=== PATIENT | female | born 1995 | race Asian ===

== ENCOUNTER 2020-07-11 14:45 | Emergency (ER) | payer OTHER ==
--- OUTSIDE RECORDS SUMMARY | 2020-07-11 14:48 | XMS REPORT | Continuity of Care Document ---
:1995 Author Organization [facility] t Address [address] [place] [address] Dr. Gomez [address] [place] [id number] Care Team Providers Name Role Phone Blayne MARTÍNEZ Attending Clinician Problems This patient has no known problems. Allergies, Adverse Reactions, Alerts This patient has no known allergies or adverse reactions. Medications This patient has no known medications. Procedures This patient has no known procedures. Encounters Start End Encounter Admission Attending Care Care Encounter Source Date/Time Date/Time Type Type Clinicians Facility Department ID 2020-04-19 2020-04-19 Emergency GHISLAINE Cisneros [id number] 11:49:00 14:31:00 Michaela Tucker [id number] [place] [id number] [place] [id number] Results This patient has no known results.
[2020-07-11 15:17] LABS: Urine Blood 2+ (Negative); Urine Glucose Negative (Negative); Urine Protein Trace (Negative); Urine Specific Gravity >=1.030 (1.005-1.030)
[2020-07-11 15:37] LABS: Urine Specific Gravity/Preg >1.030 (1.005-1.030)
[2020-07-11 16:08] LABS: Absolute Lymphocytes (CBC) 1.4 K/uL (0.7-4.9); Basophils % 0.2 % (0-1.3); Hematocrit 32.3 % (36.0-45.0); Lymphocytes % 21.6 % (15.3-44.8); MPV 7.2 fL (7.6-11.3); RBC Red Blood Cell Count 3.61 M/uL (3.86-4.86)
[2020-07-11 16:28] LABS: BUN Blood Urea Nitrogen 8 mg/dL (7-18); Bicarbonate 25 mmol/L (21-32); Glucose Level 90 mg/dL (74-106); HCG, Quantitative 145916 mIU/mL (1-3); Potassium 3.6 mmol/L (3.5-5.1); Sodium Level 140 mmol/L (136-145)
[2020-07-11] MEDS ORDERED: NA CHLORIDE 0.9% 1,000 ML ONE ×2 (17:09→17:46)
--- NOTE | 2020-07-11 17:25 | ER ---
Nurse's Notes [facility] Name: Mary Ann Wood Age: 24 yrs Sex: Female : 1995 Arrival Date: 07/11/2020 Time: 14:48 Bed 16 Private MD: Diagnosis: Volume depletion;11 weeks gestation of Presentation: 07/11 15:10 Chief complaint: Patient states: Pt states she is with triplets and has had ae4 decreased appetite and vomiting x 2 since the previous day. Pt describes vomit as "yellow" and with "mucous". Coronavirus screen: Client denies travel out of the [place] in the last 14 days. At this time, the client does not indicate any symptoms associated with coronavirus-19. Ebola Screen: Patient denies exposure to infectious person. Patient denies travel to an Ebola-affected area in the 21 days before illness onset. No symptoms or risks identified at this time. Initial Sepsis Screen: Does the patient meet any 2 criteria? No. Patient's initial sepsis screen is negative. Risk Assessment: Do you want to hurt yourself or someone else? Patient reports no desire to harm self or others. Onset of symptoms was July 08, 2020. 15:10 Method Of Arrival: Ambulatory ae4 15:10 Acuity: AILYN 3 ae4 15:26 Initial Sepsis Screen: Does the patient have a suspected source of infection? No. tr6 Patient's initial sepsis screen is negative. Triage Assessment: 15:13 General: Appears in no apparent distress. comfortable, Behavior is calm, cooperative. ae4 Pain: Complains of pain in head and back of head. Neuro: Level of Consciousness is awake, alert, obeys commands, Oriented to person, place, time, situation, Appropriate for age. Respiratory: Airway is patent Respiratory effort is even, unlabored. GI: Reports vomiting, Twice since the previous day. 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 Last tetanus immunization: < 10 years ago Flu vaccine is not up to date. - Social history:: Smoking status: Patient denies any tobacco usage or history of. Screenin:11 Abuse screen: Denies threats or abuse. Denies injuries from another. Nutritional tr6 screening: No deficits noted. Tuberculosis screening: No symptoms or risk factors identified. Fall Risk None identified. Assessment: 18:56 General: Appears in no apparent distress. Behavior is calm, cooperative, appropriate tr6 for age. Pain: Complains of pain in c/o headache. Neuro: No deficits noted. Cardiovascular: No deficits noted. Respiratory: No deficits noted. GI: pt with triplets. : No deficits noted. EENT: No deficits noted. Derm: No deficits noted. Musculoskeletal: No deficits noted. Vital Signs: 14:54 BP 98 / 64; Pulse 94; Resp 18; Temp 97.6; Pulse Ox 100% ; Weight 60.33 kg; Height 4 ft. ae4 11 in. (149.86 cm); Pain 6/10; 15:25 BP 100 / 64 Supine; tr6 15:25 BP 112 / 72 Sitting; tr6 15:25 BP 94 / 71 Standing; tr6 18:28 BP 99 / 65; Pulse 92; Resp 18; Pulse Ox 100% on R/A; tr6 14:54 Body Mass Index 26.86 (60.33 kg, 149.86 cm) ae4 ED Course: 14:48 Patient arrived in ED. ds1 14:51 [facility]ul [facility] kb 14:51 Chavo Beckford MD is Attending Physician. kb 15:09 Ladan Lin RN is Primary Nurse. tr6 15:11 Patient has correct armband on for positive identification. Bed in low position. Call tr6 light in reach. Side rails up X 1. 15:11 No provider procedures requiring assistance completed. tr6 15:12 Triage completed. ae4 16:28 OB Multi Gestation < 14 Wks In Process Unspecified. EDMS 18:57 IV discontinued, intact, bleeding controlled, No redness/swelling at site. Pressure tr6 dressing applied. Administered Medications: 16:54 Drug: NS 0.9% 1000 ml Route: IV; Rate: 1000 ml; Site: left antecubital; vg1 18:42 Follow up: IV Status: Completed infusion; IV Intake: 1000ml vg1 Intake: 18:42 IV: 1000ml; Total: 1000ml. vg1 Outcome: 17:24 Discharge ordered by MD. ramos 18:57 Discharged to home ambulatory. tr6 18:57 Condition: stable 18:57 Discharge instructions given to patient, Instructed on discharge instructions, follow up and referral plans. safety practices, Demonstrated understanding of instructions, follow-up care. 18:57 Patient left the ED. tr6 Signatures: Dispatcher [employer] EDRI Azul Alejandre, HEAD LINEMAN-C HEAD LINEMAN-Maria De Jesus Meeks ds1 Ben Dao, RN RN ae4 Caty Harrison RN RN vg1 Ladan Lin, RN RN tr6
--- NOTE | 2020-07-11 17:25 | EDPHYS ---
Physician Documentation [facility] Name: Mary Ann Wood Age: 24 yrs Sex: Female : 1995 Arrival Date: 07/11/2020 Time: 14:48 Bed 16 Private MD: ED Physician Chavo Beckford HPI: 07/11 20:38 This 24 yrs old Female presents to ER via Ambulatory with complaints of Nausea, kb Dizziness, 10 Wks Preg W/Multiples. 20:38 The patient presents to the emergency department with abdominal pain, of the suprapubic kb area, that started 2 day(s) ago, nausea and vomiting, that started today, 1 times since the onset of symptoms. The estimated gestational age is 11 weeks. course: care: at a clinic. Previous pregnancies: the patient has never been . Associated signs and symptoms: Pertinent positives: abdominal pain, nausea, vomiting, Pertinent negatives: dysuria, fever, vaginal bleeding, vaginal discharge. The patient has not experienced similar symptoms in the past. The patient has not recently seen a physician. Pt reports decreased appetite for 2 days, had some dizziness yesterday, today vomited once. States she has had low abd pain as well and is 11 weeks with triplets. 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 Last tetanus immunization: < 10 years ago Flu vaccine is not up to date. - Social history:: Smoking status: Patient denies any tobacco usage or history of. ROS: 20:37 Constitutional: Negative for fever, chills, and weight loss. kb 20:37 Constitutional: Positive for decreased appetites. 20:37 Abdomen/GI: Positive for abdominal pain, nausea and vomiting. 20:37 Neuro: Positive for dizziness. 20:37 All other systems are negative. Exam: 20:38 Constitutional: This is a well developed, well nourished patient who is awake, alert, kb and in no acute distress. Head/Face: Normocephalic, atraumatic. Eyes: Pupils equal round and reactive to light, extra-ocular motions intact. Lids and lashes normal. Conjunctiva and sclera are non-icteric and not injected. Cornea within normal limits. Periorbital areas with no swelling, redness, or edema. ENT: Moist Mucous membranes Cardiovascular: Regular rate and rhythm with a normal S1 and S2. No gallops, murmurs, or rubs. No pulse deficits. Respiratory: Respirations even and unlabored. No increased work of breathing, no retractions or nasal flaring. Abdomen/GI: Soft, non-tender. No distention Skin: Warm, dry with normal turgor. Normal color. MS/ Extremity: Pulses equal, no cyanosis. Neurovascular intact. Full, normal range of motion. Neuro: Awake and alert, GCS 15, oriented to person, place, time, and situation. Moves all extremities. Normal gait. Psych: Awake, alert, with orientation to person, place and time. Behavior, mood, and affect are within normal limits. Vital Signs: 14:54 BP 98 / 64; Pulse 94; Resp 18; Temp 97.6; Pulse Ox 100% ; Weight 60.33 kg; Height 4 ft. ae4 11 in. (149.86 cm); Pain 6/10; 15:25 BP 100 / 64 Supine; tr6 15:25 BP 112 / 72 Sitting; tr6 15:25 BP 94 / 71 Standing; tr6 18:28 BP 99 / 65; Pulse 92; Resp 18; Pulse Ox 100% on R/A; tr6 14:54 Body Mass Index 26.86 (60.33 kg, 149.86 cm) ae4 MDM: 14:58 Patient medically screened. kb 20:36 Data reviewed: vital signs, nurses notes. Data interpreted: Pulse oximetry: on room air kb is 100 %. Interpretation: normal. Counseling: I had a detailed discussion with the patient and/or guardian regarding: the historical points, exam findings, and any diagnostic results supporting the discharge/admit diagnosis, lab results, radiology results, the need for outpatient follow up, an OB/Gyne specialist, to return to the emergency department if symptoms worsen or persist or if there are any questions or concerns that arise at home. 07/11 14:57 Order name: Quantitative Hcg; Complete Time: 16:41 kb 07/11 14:57 Order name: Abo/rh Typing; Complete Time: 18:10 kb 07/11 14:57 Order name: Basic Metabolic Panel; Complete Time: 16:41 kb 07/11 14:57 Order name: CBC with Diff; Complete Time: 16:41 kb 07/11 15:17 Order name: Urine Dipstick-Ancillary; Complete Time: 15:29 EDMS 07/11 15:20 Order name: Urine --Ancillary (enter results) em1 07/11 14:57 Order name: Urine Test (obtain specimen); Complete Time: 15:11 kb 07/11 14:57 Order name: IV Saline Lock; Complete Time: 15:11 kb 07/11 14:57 Order name: Labs collected and sent; Complete Time: 15:11 kb 07/11 14:57 Order name: NPO; Complete Time: 15:11 kb 07/11 15:21 Order name: Urine --Ancillary; Complete Time: 15:44 EDMS 07/11 16:28 Order name: OB Multi Gestation < 14 Wks; Complete Time: 17:35 EDMS 07/11 14:57 Order name: Orthostatics; Complete Time: 15:11 kb Administered Medications: 16:54 Drug: NS 0.9% 1000 ml Route: IV; Rate: 1000 ml; Site: left antecubital; vg1 18:42 Follow up: IV Status: Completed infusion; IV Intake: 1000ml vg1 Disposition: 07/11/20 17:24 Discharged to Home. Impression: Volume depletion, 11 weeks gestation of . - Condition is Stable. - Discharge Instructions: First Trimester of , Otkr-id-Tpkd, Dehydration, Adult, Bann-ze-Spzo. - Medication Reconciliation Form, Thank You Letter, Antibiotic Education, Prescription Opioid Use form. - Follow up: Emergency Department; When: As needed; Reason: Worsening of condition. Follow up: Private Physician; When: 2 - 3 days; Reason: Recheck today's complaints, Continuance of care, Re-evaluation by your physician. Addendum: 07/15/2020 06:59 Co-signature as Attending Physician, Chavo Beckford MD. m a2 Signatures: Dispatcher [employer] EDAzul Chen, TANYA-Marine MARTÍNEZ-Chavo Fierro MD MD ma2 Ben Dao RN RN ae4 Caty Harrison, RN RN vg1 Ladan Lin, RN RN tr6 Corrections: (The following items were deleted from the chart) 07/11 16:28 14:58 Transvaginal Ob+US.RAD.BRZ ordered. EDMS EDMS 18:57 17:24 07/11/2020 17:24 Discharged to Home. Impression: Volume depletion; 11 weeks tr6 gestation of . Condition is Stable. Forms are Medication Reconciliation Form, Thank You Letter, Antibiotic Education, Prescription Opioid Use. Follow up: Emergency Department; When: As needed; Reason: Worsening of condition. Follow up: Private Physician; When: 2 - 3 days; Reason: Recheck today's complaints, Continuance of care, Re-evaluation by your physician. kb
--- NOTE | 2020-07-11 17:29 | RAD REPORT ---
EXAM DESCRIPTION: US - OB Multi Gestation < 14 Wks - 07/11/2020 4:28 pm CLINICAL HISTORY: with abdominal pain COMPARISON: None FINDINGS: The uterus measures 10 x 8 x 10 centimeters. Three gestational sacs are visualized. Each has a pole. Baby A crown-rump length 4 centimeters. Cardiac activity 176 beats per minute. Baby B crown-rump length 4.5 centimeters. Cardiac activity 178 beats per minute. Baby C crown-rump length 4.3 centimeters. Cardiac activity 160 beats per minute. The right and left at adnexa unremarkable. Left ovary is normal in size and echotexture. Right ovary was not seen secondary to bowel gas. IMPRESSION: Triplet . Estimated gestational A 10 weeks 5 days KAYLYN 02/01/2021 Estimated gestational age B 11 weeks 0 days KAYLYN 01/30/2021 Estimated gestational C 11 weeks 0 days KAYLYN 01/30/2021 Three separate gestational sacs visualized. If a survey is desired it should be performed in approximately 7 weeks
[2020-07-11 19:04] VITALS: TEMP 97.6; O2SAT 100
[2020-07-11 19:07] VITALS: BP 99/65
== END 2020-07-11 18:57 | disposition home or self-care (01) ==
LOC: ER 14:45
DX: O30.1 Triplet pregnancy (principal); O99.281 Endocrine, nutritional and metabolic diseases complicating pregnancy, first trimester; E86.9 Volume depletion, unspecified; Z3A.11 11 weeks gestation of pregnancy
CPT/HCPCS: 85025; 80048; 36415; 86900; 81025; 86901; 84702; 81003; 76802; J7030 ×2; 96360; 96361; 99283

== ENCOUNTER 2020-08-04 21:01 | Emergency (ER) | payer OTHER ==
--- OUTSIDE RECORDS SUMMARY | 2020-08-04 21:04 | XMS REPORT | Continuity of Care Document ---
:1995 Author Organization [facility] t Address [address] [place] [address] Dr. Gomez [address] [place] [id number] Care Team Providers Name Role Phone Blayne [...] 2020-04-19 2020-04-19 Emergency GHISLAINE Cisneros [id number] 11:49:00 14:31:00 Michaela Tucker [id number] [place] [id number] [place] [phone] [id number] Results This patient has no known results.
[2020-08-04 22:26] LABS: Urine Blood Trace-intact (Negative); Urine Glucose Negative (Negative); Urine Protein 1+ (Negative); Urine Specific Gravity >=1.030 (1.005-1.030)
[2020-08-04 22:34] LABS: Absolute Lymphocytes (CBC) 1.9 K/uL (0.7-4.9); Basophils % 0.2 % (0-1.3); Hematocrit 27.7 % (36.0-45.0); Lymphocytes % 25.1 % (15.3-44.8); MPV 6.8 fL (7.6-11.3); RBC Red Blood Cell Count 3.09 M/uL (3.86-4.86)
[2020-08-04 23:08] LABS: BUN Blood Urea Nitrogen 7 mg/dL (7-18); Bicarbonate 22 mmol/L (21-32); Glucose Level 73 mg/dL (74-106); HCG, Quantitative 112412 mIU/mL (1-3); Potassium 3.7 mmol/L (3.5-5.1); Sodium Level 138 mmol/L (136-145)
[2020-08-04 23:54] LABS: Urine Bacteria >50 /HPF (<20); Urine RBC <5 /HPF (NONE SEEN)
[2020-08-05] MEDS ORDERED: NA CHLORIDE 0.9% 1,000 ML ONE (00:20)
[2020-08-05] MEDS ORDERED: NITROFURAN MACRO 100 MG CAP PO ONE (00:20)
--- NOTE | 2020-08-05 00:41 | ER ---
Nurse's Notes [facility] Name: Mary Ann Wood Age: 24 yrs Sex: Female : 1995 Arrival Date: 08/04/2020 Time: 21:04 Bed 24 Private MD: Diagnosis: Threatened ;Urinary tract infection, site not specified Presentation: 08/04 21:10 Chief complaint: Patient states: 14 wks to triplets. 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 Also reports vaginal spotting. Coronavirus screen: Client denies travel out of the [place] in the last 14 days. At this time, the client does not indicate any symptoms associated with coronavirus-19. Ebola Screen: Patient negative for fever greater than or equal to 101.5 degrees Fahrenheit, and additional compatible Ebola Virus Disease symptoms Patient denies exposure to infectious person. Patient denies travel to an Ebola-affected area in the 21 days before illness onset. No symptoms or risks identified at this time. Initial Sepsis Screen: Does the patient meet any 2 criteria? No. Patient's initial sepsis screen is negative. Does the patient have a suspected source of infection? No. Patient's initial sepsis screen is negative. Risk Assessment: Do you want to hurt yourself or someone else? Patient reports no desire to harm self or others. Onset of symptoms was August 04, 2020. 21:10 Method Of Arrival: Ambulatory ca1 21:10 Acuity: AILYN 3 ca1 Triage Assessment: 21:34 Injury Description:. 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 Flu vaccine is not up to date. - Social history:: Smoking status: Patient denies any tobacco usage or history of. - Family history:: not pertinent. - Hospitalizations: : No recent hospitalization is reported. Screenin:34 Abuse screen: Denies threats or abuse. Denies injuries from another. Nutritional kg screening: No deficits noted. Tuberculosis screening: No symptoms or risk factors identified. Fall Risk None identified. No fall in past 12 months (0 pts). No secondary diagnosis (0 pts). No IV (0 pts). Ambulatory Aid- None/Bed Rest/Nurse Assist (0 pts). Gait- Normal/Bed Rest/Wheelchair (0 pts) Mental Status- Oriented to own ability (0 pts). Total Mathis Fall Scale indicates No Risk (0-24 pts). Assessment: 21:31 General: Appears in no apparent distress. Behavior is cooperative, appropriate for age, kg anxious, quiet. Pain: Complains of pain in suprapubic area, right lower quadrant and left lower quadrant Pain currently is 8 out of 10 on a pain scale. at worst was 8 out of 10 on a pain scale. level that patient reports is acceptable is 2 out of 10 on a pain scale. Quality of pain is described as crampy, sharp, Pain began 2 hours ago. Is episodic. Neuro: No deficits noted. Cardiovascular: No deficits noted. Heart tones S1 S2 Capillary refill < 3 seconds Pulses are 4+ in right radial artery and left radial artery. Respiratory: No deficits noted. Airway is patent Breath sounds are clear bilaterally. GI: No deficits noted. GI: Reports lower abdominal pain, cramping, nausea. : No deficits noted. : Reports vaginal bleeding that is spotty, since two hours ago, unsure if its vaginal or urine. EENT: No deficits noted. Derm: No deficits noted. Musculoskeletal: No deficits noted. 08/05 00:34 Reassessment: Patient appears in no apparent distress at this time. Patient and/or em family updated on plan of care and expected duration. Pain level reassessed. Patient is alert, oriented x 3, equal unlabored respirations, skin warm/dry/pink. Vital Signs: 08/04 21:10 BP 108 / 67; Pulse 98; Resp 18 S; Temp 98.1(TE); Pulse Ox 98% on R/A; Weight 58.97 kg ca1 (R); Height 4 ft. 11 in. (149.86 cm) (R); Pain 8/10; 21:35 BP 106 / 76; Pulse 86; Resp 18; Pulse Ox 100% on R/A; kg 22:30 BP 108 / 75; Pulse 93; Pulse Ox 100% on R/A; kg 23:00 BP 102 / 77; Pulse 87; Resp 18; Pulse Ox 100% ; kg 23:30 BP 98 / 63; Pulse 90; Resp 20; Pulse Ox 100% ; kg 08/05 00:00 BP 98 / 73; Pulse 89; Resp 29; Pulse Ox 100% on R/A; kg 08/04 21:10 Body Mass Index 26.26 (58.97 kg, 149.86 cm) ca1 ED Course: 08/04 21:04 Patient arrived in ED. bp1 21:12 Triage completed. ca1 21:12 Arm band placed on right wrist. ca1 21:19 Netta Toro, RN is Primary Nurse. kg 21:23 Rory Cantor MD is Attending Physician. rn 21:35 Patient has correct armband on for positive identification. Placed in gown. Bed in low kg position. Call light in reach. Side rails up X2. 22:08 US OB Limited In Process Unspecified. EDMS 06 00:54 No provider procedures requiring assistance completed. IV discontinued, intact, em bleeding controlled, No redness/swelling at site. Pressure dressing applied. Administered Medications: 00:03 Drug: NS 0.9% 1000 ml Route: IV; Rate: 1000 ml; Site: right antecubital; kg 00:54 Follow up: IV Status: Completed infusion; IV Intake: 1000ml em 00:03 Drug: Macrobid (nitrofurantoin) 100 mg Route: PO; kg 00:53 Follow up: Response: No adverse reaction em Intake: 00:54 IV: 1000ml; Total: 1000ml. em Outcome: 00:40 Discharge ordered by . rn 00:54 Discharged to home ambulatory. em 00:54 Condition: stable 00:54 Discharge instructions given to patient, Instructed on discharge instructions, follow up and referral plans. medication usage, Demonstrated understanding of instructions, follow-up care, medications, Prescriptions given X 1. 00:55 Patient left the ED. em Signatures: Dispatcher [employer] Andrzej Leo RN RN Rory Cantor MD MD rn Acob, Cheryl, RN RN ca1 Marlyn Hook bp1 Netta Toro RN RN kg
--- NOTE | 2020-08-05 00:41 | EDPHYS ---
Physician Documentation [facility] Name: Mary Ann Wood Age: 24 yrs Sex: Female : 1995 Arrival Date: 08/04/2020 Time: 21:04 Bed 24 Private MD: ED Physician Rory Cantor HPI: 08/04 23:59 This 24 yrs old Female presents to ER via Ambulatory with complaints of Vaginal rn Bleeding, +14 Weeks . 23:59 The patient presents to the emergency department with vaginal bleeding, that is light, rn described as spotting. The estimated gestational age is 14 weeks. Previous pregnancies: the patient has never been . The patient has not experienced similar symptoms in the past. The patient has not recently seen a physician. G1 at approx 13-14 weeks presents with abd cramping and vaginal bleeding/spotting. No fever. No trauma. No urinary symptoms. Reports known triplets. Has had u/s already. Doesn't know blood type.. 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 Flu vaccine is not up to date. - Social history:: Smoking status: Patient denies any tobacco usage or history of. - Family history:: not pertinent. - Hospitalizations: : No recent hospitalization is reported. ROS: 23:59 Constitutional: Negative for fever, chills, and weight loss, Eyes: Negative for injury, rn pain, redness, and discharge, Neck: Negative for injury, pain, and swelling, Cardiovascular: Negative for chest pain, palpitations, and edema, Respiratory: Negative for shortness of breath, cough, wheezing, and pleuritic chest pain, Abdomen/GI: Negative for nausea, vomiting, diarrhea, and constipation, Back: Negative for injury and pain, : Negative for injury, discharge, and swelling, MS/Extremity: Negative for injury and deformity, Skin: Negative for injury, rash, and discoloration, Neuro: Negative for headache, weakness, numbness, tingling, and seizure. Exam: 23:59 Constitutional: This is a well developed, well nourished patient who is awake, alert, rn and in no acute distress. Head/Face: Normocephalic, atraumatic. Eyes: Periorbital areas with no swelling, redness, or edema. ENT: dry MM Cardiovascular: Regular rate and rhythm. No pulse deficits. Respiratory: No increased work of breathing, no retractions or nasal flaring. Abdomen/GI: soft, + gravid uterus, mild tenderness right lower abdomen Skin: Warm, dry MS/ Extremity: Pulses equal, no cyanosis. Neuro: Awake and alert, GCS 15 Vital Signs: 21:10 BP 108 / 67; Pulse 98; Resp 18 S; Temp 98.1(TE); Pulse Ox 98% on R/A; Weight 58.97 kg ca1 (R); Height 4 ft. 11 in. (149.86 cm) (R); Pain 8/10; 21:35 BP 106 / 76; Pulse 86; Resp 18; Pulse Ox 100% on R/A; kg 22:30 BP 108 / 75; Pulse 93; Pulse Ox 100% on R/A; kg 23:00 BP 102 / 77; Pulse 87; Resp 18; Pulse Ox 100% ; kg 23:30 BP 98 / 63; Pulse 90; Resp 20; Pulse Ox 100% ; kg 08/05 00:00 BP 98 / 73; Pulse 89; Resp 29; Pulse Ox 100% on R/A; kg 08/04 21:10 Body Mass Index 26.26 (58.97 kg, 149.86 cm) ca1 MDM: 08/04 21:23 Patient medically screened. rn 08/05 00:38 Differential diagnosis: threatened Ab. Data reviewed: vital signs, nurses notes, dye lab technician test result(s), radiologic studies, ultrasound, and as a result, I will discharge patient. Counseling: I had a detailed discussion with the patient and/or guardian regarding: the historical points, exam findings, and any diagnostic results supporting the discharge/admit diagnosis, lab results, radiology results, the need for outpatient follow up, to return to the emergency department if symptoms worsen or persist or if there are any questions or concerns that arise at home. Response to treatment: the patient's symptoms have mildly improved after treatment, and as a result, I will discharge patient. Special discussion: I discussed with the patient/guardian in detail that at this point there is no indication for admission to the hospital. It is understood, however, that if the symptoms persist or worsen the patient needs to return immediately for re-evaluation. Based on the history and exam findings, there is no indication for further emergent testing or inpatient evaluation. I discussed with the patient/guardian the need to see the OB Gyne specialist for further evaluation of the symptoms. ED course: Rh+, u/s shows FHTs in 150s, will dc home with abx for UTI. Return precautions given. Has OB f/u today.. 08/04 21:36 Order name: Quantitative Hcg; Complete Time: 23:13 rn 08/04 21:36 Order name: Abo/rh Typing; Complete Time: 00:38 rn 08/04 21:36 Order name: Basic Metabolic Panel; Complete Time: 23:13 rn 08/04 21:36 Order name: CBC with Diff; Complete Time: 22:49 rn 08/04 21:36 Order name: Urine Microscopic Only; Complete Time: 23:57 rn 08/04 22:26 Order name: Urine Dipstick-Ancillary; Complete Time: 22:49 EDMS 08/04 21:36 Order name: IV Saline Lock; Complete Time: 23:35 rn 08/04 21:36 Order name: Labs collected and sent; Complete Time: 23:35 rn 08/04 21:36 Order name: NPO; Complete Time: 21:37 rn 08/04 21:36 Order name: Urine Dipstick-Ancillary (obtain specimen); Complete Time: 23:35 rn 08/04 21:36 Order name: US OB Limited rn 08/04 23:55 Order name: Urine Culture EDMS Administered Medications: 00:03 Drug: NS 0.9% 1000 ml Route: IV; Rate: 1000 ml; Site: right antecubital; kg 00:54 Follow up: IV Status: Completed infusion; IV Intake: 1000ml em 00:03 Drug: Macrobid (nitrofurantoin) 100 mg Route: PO; kg 00:53 Follow up: Response: No adverse reaction em Disposition: 08/05/20 00:40 Discharged to Home. Impression: Threatened , Urinary tract infection, site not specified. - Condition is Stable. - Discharge Instructions: Threatened Miscarriage, Urinary Tract Infection, Adult. - Prescriptions for Macrobid 100 mg Oral Capsule - take 1 capsule by ORAL route every 12 hours for 7 days; 14 capsule. - Medication Reconciliation Form, Thank You Letter, Antibiotic Education, Prescription Opioid Use form. - Follow up: Private Physician; When: As needed; Reason: Recheck today's complaints, Re-evaluation by your physician. - Problem is new. - Symptoms have improved. Signatures: Dispatcher [employer] Andrzej Leo RN RN Rory Ferrell MD MD rn Acob, ADWOA Carney RN Netta Landaverde RN RN kg Corrections: (The following items were deleted from the chart) 00:55 00:40 08/05/2020 00:40 Discharged to Home. Impression: Threatened ; Urinary em tract infection, site not specified. Condition is Stable. Forms are Medication Reconciliation Form, Thank You Letter, Antibiotic Education, Prescription Opioid Use. Follow up: Private Physician; When: As needed; Reason: Recheck today's complaints, Re-evaluation by your physician. Problem is new. Symptoms have improved. rn
[2020-08-05 01:21] VITALS: TEMP 98.1
[2020-08-05 01:23] VITALS: O2SAT 100
[2020-08-05 01:29] VITALS: BP 98/73
--- NOTE | 2020-08-05 08:24 | RAD REPORT ---
EXAM DESCRIPTION: US - OB Limited - 08/04/2020 10:08 pm CLINICAL HISTORY: preg, triplets, bleeding, 14 weeks Preliminary findings were provided at the time of the study. COMPARISON: OB Multi Gestation < 14 Wks dated 07/11/2020 FINDINGS: Triplet is again identified. A single twin containing gestational sac is seen [place] periorly. Anterior placenta is seen. Between containing gestational sac is seen inferiorly. The place nta is posteriorly positioned. Clearly defined gestational sac membranes separates the twin gestation from the pham. Amniotic fluid volume is normal for each chest station. No abruption or marginal hematoma. Cervical c anal is closed. Baby 1 and 2 show the common gestational sac. Baby 1 measures 13 weeks 4 days with heart rate of 165 BPM. Baby 2 measures 13 weeks 3 days with a heart rate 158 BPM. The single baby 3 measures 13 weeks 4 days with cardiac activity 152 BPM. No adnexal abnormality. Neither ovary could be identified. Calculated KAYLYN for the is 02/05/2021. This is very similar to the June examination. IMPRESSION: Triplet showing normal heart rate. KAYLYN is 02/05/2021 which is normal interval growth since the June comparison study. Amniotic fluid volumes are normal. The placental tissues show no abruption, marginal hematoma or susp icious finding. Cervical canal is closed.
== END 2020-08-05 00:55 | disposition home or self-care (01) ==
LOC: ER 21:01
DX: O20.0 Threatened abortion (principal); O23.41 Unspecified infection of urinary tract in pregnancy, first trimester; Z3A.14 14 weeks gestation of pregnancy
CPT/HCPCS: 87088; 85025; 87086; 80048; 36415; 86900; 86901; 84702; 76815; J7030; 81003; 81015; 96360; 99283

== ENCOUNTER 2021-05-28 20:48 | Emergency (ER) | payer OTHER ==
--- OUTSIDE RECORDS SUMMARY | 2021-05-28 21:01 | XMS REPORT | Continuity of Care Document ---
:[address] [facility] t Address [address] [place] [address] Care Team Providers Name Role Phone PCP, DOES NOT HAVE A Primary Care Physician Unavailable Sundeep Ernst Attending Clinician Unavailable Michelle Spencer Attending Clinician Unavailable Balbir Quiñones Attending Clinician Unavailable EDDIE Attending Clinician Unavailable DONNELL Attending Clinician Unavailable DONNELL Attending Clinician Unavailable Eddie PEÑALOZA Attending Clinician Doctor Unassigned, Name Attending Clinician Unavailable Pcp, Does Not Have A Attending Clinician Sebastian Attending Clinician Unavailable Emile Attending Clinician Unavailable Kenn Attending Clinician Unavailable Blayne MARTÍNEZ Attending Clinician Klever P Admitting Clinician Unavailable Vicky Admitting Clinician Unavailable Physician, Primary or Family Admitting Clinician Unavailabl e Payers Payer Name Policy Type Policy Number Effective Date Expiration Date [facility] [id number] 2021 CHOICE MEDICAID 00:00:00 Problems Condition Condition Condition Status Onset Resolution Last Treating Co mments Source Name Details Category Date Date Treatment Clinician Date Short Short Disease Active Univers interval interval 2-23 ity of between between 00:00: [place] pregnancie pregnancie 00 Me dical s s Branch affecting affecting in first in first trimester, trimester, antepartum antepartum History of History of Disease Active U nivers 2-23 ity of section section 00:00: [place] 00 Medical Branch Supervisio Supervisio Disease Active U nivers n of high n of high 2-23 ity of risk risk 00:00: [place] 00 Medi camilla in first in first Branch trimester trimester No known No known Disease Unive rs active active ity of problems problems [facility] Allergies, Adverse Reactions, Alerts Allergy Allergy Status Severity Reaction(s) Onset Inactive Treating Comm ents Source Name Type Date Date Clinician No Known DA Active U 2020-02 [facility]ie 0-23 Clear s 00:00: Munoz 00 [facility] No Known DA Active U 2020-02 [facility] Allergie 0-23 Clear s 00:00: Munoz 00 [facility] No Known DA Active U [facility] Allergie 9-29 Clear s 00:00: Munoz 00 [facility] No Known DA Active U [facility] Allergie 9-29 Clear s 00:00: Munoz 00 [facility] No Known DA Active U [facility] Allergie 7-30 Clear s 00:00: Munoz 00 [facility] No Known DA Active U [facility] Allergie 7-30 Clear s 00:00: Munoz 00 [facility] NO KNOWN Drug Active Univers ALLERGIE Class ity of S [facility] Social History Social Habit Start Date Stop Date Quantity Comments Source ASSERTION 2021-02-17 [facility] 00:00:00 [facility] Exposure to Not sure [facility] SARS-CoV-2 [facility] (event) [place] Alcohol intake 2021-05-03 2021-05-03 Ex-drinker [facility] 00:00:00 00:00:00 (finding) [facility] Tobacco use and 2021-04-12 2021-04-12 Never used Universit y of exposure 00:00:00 00:00:00 [facility] Sex Ass[birth year] Universit y of 00:00:00 00:00:00 [facility] Smoking Status Start Date Stop Date Source Never smoker [facility] Unknown if ever smoked [facility] Medications Ordered Filled Start Stop Current Ordering Indication Dosage Frequency Signature Comments Components Source Medication Medication Date Date Medication? Clinician (SIG) Name Name PNV Yes [id number] Take by Unive rs no.95/susanna 2-22 mouth. ity of us 09:33: [place] fum/folic 03 Medical ac Branch ( ORAL) PNV 2021-0 Yes [id number] Take by Unive rs no.95/susanna 2-22 mouth. ity of us 09:33: [place] fum/folic 03 Medical ac Branch ( ORAL) PNV 2021-0 Yes [id number] Take by Unive rs no.95/susanna 2-22 mouth. ity of us 09:33: [place] fum/folic 03 Medical ac Branch ( ORAL) ibuprofen Yes [id number] 600mg Take 1 Univers 600 mg 3-01 tablet by ity of tablet 00:00: mouth [place] 00 every 6 Medical (six) Branch hours as needed for Pain (scale 4-6). ibuprofen Yes [id number] 600mg Take 1 Univers 600 mg 3-01 tablet by ity of tablet 00:00: mouth [place] 00 every 6 Medical (six) Branch hours as needed for Pain (scale 4-6). ibuprofen Yes [id number] 600mg Take 1 Univers 600 mg 3-01 tablet by ity of tablet 00:00: mouth [place] 00 every 6 Medical (six) Branch hours as needed for Pain (scale 4-6). ibuprofen 2021- No [id number] 600mg Take 1 Univers 600 mg 3-01 -22 tablet by ity of tablet 00:00: 00:00 mouth [place] 00 :00 every 6 Medical (six) Branch hours as needed for Pain (scale 4-6). Vital Signs Vital Name Observation Time Observation Value Comments Source Systolic blood 2021-05-03 16:09:00 101 mm[Hg] [facility] Diastolic blood 2021-05-03 16:09:00 71 mm[Hg] [facility] Heart rate 2021-05-03 16:09:00 81 /min [facility] Respiratory rate 2021-05-03 16:09:00 18 /min [facility] Body height 2021-05-03 16:09:00 152.4 cm [facility] Body weight 2021-05-03 16:09:00 59.96 kg [facility] BMI 2021-05-03 16:09:00 25.82 kg/m2 [facility] [place] [facility] Systolic blood 2021-04-12 15:31:00 96 mm[Hg] Univer sity of pressure [place] [facility] Diastolic blood 2021-04-12 15:31:00 62 mm[Hg] Unive rsity of pressure [place] [facility] Heart rate 2021-04-12 15:31:00 81 /min Universi ty of [facility] Body temperature 2021-04-12 15:31:00 36.78 Soumya Univ ersity of [facility] Branch Respiratory rate 2021-04-12 15:31:00 18 /min Univ ersity of [facility] Branch Body height 2021-04-12 15:31:00 152.4 cm Universi ty of [facility] Body weight 2021-04-12 15:31:00 61.054 kg [facility]i ty [facility] [place] [facility] BMI 2021-04-12 15:31:00 26.29 kg/m2 Universi ty of [facility] Systolic blood 2020-04-19 17:34:00 115 mm[Hg] Univer sity of pressure [facility] Diastolic blood 2020-04-19 17:34:00 81 mm[Hg] Unive rsity of pressure [facility] Branch Heart rate 2020-04-19 17:34:00 84 /min Universi ty of [facility] Body temperature 2020-04-19 17:34:00 37.11 Soumya Univ ersity of [facility] Branch Respiratory rate 2020-04-19 17:34:00 18 /min Univ ersity of [facility] Body weight 2020-04-19 17:34:00 56.7 kg Universi ty of [facility] Oxygen saturation in 2020-04-19 17:34:00 98 /min [facility] Arterial blood by [facility] Pulse oximetry Branch Systolic blood 2020-04-19 17:34:00 115 mm[Hg] Univer sity of pressure [facility] Branch Diastolic blood 2020-04-19 17:34:00 81 mm[Hg] Unive rsity of pressure [place] [facility] [place] Heart rate 2020-04-19 17:34:00 84 /min Universi ty of [facility] Body temperature 2020-04-19 17:34:00 37.11 Soumya Univ ersity of [facility] Respiratory rate 2020-04-19 17:34:00 18 /min [facility] Body weight 2020-04-19 17:34:00 56.7 kg [facility] Oxygen saturation in 2020-04-19 17:34:00 98 /min [facility] Arterial blood by [facility] Pulse oximetry Branch Procedures Procedure Date / Time Performed Performing Clinician Sourc e POCT URINALYSIS W/O 2021-05-03 16:10:00 Eddie Elizabeth [facility] SPECIFIC GRAVITY [facility] <14 WEEKS US 2021-04-13 17:07:16 EddieElizabeth [facility] POCT URINALYSIS W/O 2021-04-12 15:56:00 Fish Elizabeth [facility] GRAVITY [facility] POCT TEST 2021-04-12 15:55:00 Elizabeth Morgan [facility] PAP SMEAR-LIQUID 2021-04-12 15:55:00 Elizabeth Morgan [facility] ASSIGNMENT OF BENEFITS 2021-04-12 14:41:45 Doctor Unassigned, No [facility] acute hospital [id number] 2020-11-27 00:00:00 AKAED [facility] NOTICE OF PRIVACY 2020-04-19 17:33:00 Doctor Unassigned, No [facility] CONSENT/REFUSAL FOR 2020-04-19 17:31:17 Doctor Unassigned, No [facility] DIAGNOSIS AND [facility] Medical [place] TREATMENT Encounters Start End Encounter Admission Attending Care Care Encounter Source Date/Time Date/Time Type Type Clinicians Facility Department ID 2021-01-29 Inpatient RASHAAD Ernst, HCACL LD [id number] [facility] 14:50:00 Edesiri [id number] [facility] 2021-01-29 Inpatient RASHAAD Ernst, HCACL LD [id number] [facility] 14:50:00 Edesiri 24 [facility] 2020-12-11 Inpatient HCACL TAJ [id number] [facility] 18:08:00 [id number] [facility] 2020-11-27 Inpatient Real HCACL ANDRAE [id number] [facility] 00:49:00 Jeannette [id number] Clear [facility] 2020-11-19 Inpatient YARON MurrayCL OUTD [id number] [facility] 00:09:00 Edesiri [id number] [facility] 2020-11-19 Inpatient LESLEY Murray OUTD [id number] [facility] 00:09:00 Edesiri 45 [facility] 2020-11-17 Inpatient LESLEY Quiñones ANDREA [id number] [facility] 17:30:00 Ashlee [id number] [facility] 2021-06-02 2021-06-02 Outpatient R ELIZABETH MORGAN [facility] [id number] Univers 13:15:00 13:15:00 [id number] ity [facility] 2021-06-02 2021-06-02 Outpatient R ELIZABETH MORGAN [facility] [id number] Univers 13:15:00 13:15:00 ity [facility] 2021-06-01 2021-06-01 Outpatient R KRISTOPHER JACOBO [facility] B [id number] Univers 13:00:00 13:00:00 KRISTOPHER JACOBO [facility] 2021-06-01 2021-06-01 Outpatient R KRISTOPHER JACOBO [facility] B [id number] Univers 13:00:00 13:00:00 [facility]OBO [id number] 2021-05-04 2021-05-04 Outpatient R [facility] [id number] Univers 10:00:00 10:00:00 [id number] ity [facility] 2021-05-04 2021-05-04 Outpatient R [facility] [id number] Univers 10:00:00 10:00:00 ity [facility] 2021-05-04 2021-05-04 Telephone Elizabeth Morgan NJABDULLAHI MUNOZ 1.2.840.11 [id number] Univers 00:00:00 00:00:00 [place] [id number] it y of WOMEN'S 4.2.7.2.686 [facility] [id number] [place] [address] Branch 2021-05-03 2021-05-03 Outpatient R ELIZABETH MORGAN [facility] [id number] Univers 10:30:00 11:43:20 ity [facility] 2021-05-03 2021-05-03 Routine Elizabeth Morgan NJABDULLAHI MUNOZ 1.2.840.114 [id number] Univers 10:30:00 11:43:20 [place] 350.1.13.10 i ty of [place] [id number] [address] 2021-05-03 2021-05-03 Outpatient R ELIZABETH MORGAN [facility] [id number] Univers 10:30:00 10:30:00 [id number] ity [facility] 2021-04-12 2021-04-12 Outpatient R [facility] [id number] Univers 10:45:00 10:45:00 [id number] ity [facility] 2021-04-12 2021-04-12 Outpatient R ELIZABETH MORGAN [facility] [id number] Univers 08:30:00 10:17:16 ity [facility] 2021-04-12 2021-04-12 Initial Elizabeth Morgan [facility] 1.2.840.114 [id number] Univers 08:30:00 10:17:16 [place] 350.1.13.10 i ty of [place] [id number] [address] 2021-04-12 2021-04-12 Orders Doctor CATHI 1.2.840.114 [id number] Univers 00:00:00 00:00:00 Only Unassigned, TRIP 350.1.13.10 ity of [place] [facility] 4.2.7.2.686 [place] [id number] [place] [address] Branch 2021-04-05 2021-04-05 Telephone Pcp [facility] TAMMY 1.2.840.114 [id number] Univers 00:00:00 00:00:00 Patient MAXWELL 350.1.13.10 it y of Does Not PEDIATRIC 4.2.7.2.686 [place] [facility] [id number] [address] 2021-01-15 2021-01-15 Emergency EM Sebastian, HCACL TAJ [id number] [facility] 20:35:00 21:01:00 Paxton [id number] [facility] 2021-01-15 2021-01-15 Emergency EM Sebastian, HCACL HCACL [id number] [facility] 20:35:00 21:01:00 Paxton 39 [facility] 2020-12-22 2020-12-22 Emergency EM Dark, Kellee HCACL TAJ [id number] [facility] 08:36:00 10:57:00 [id number] [facility] 2020-12-22 2020-12-22 Emergency EM Dark, Kellee HCACL HCACL [id number] [facility] 08:36:00 10:57:00 56 [facility] 2020-12-11 2020-12-11 Emergency EM Dark, Kellee HCACL TAJ [id number] [facility] 18:08:00 20:57:00 61 [facility] 2020-11-27 2020-12-02 Inpatient EM Akhan, HCACL OBPP [id number] [facility] 02:23:00 15:05:00 Edesiri 98 [facility] 2020-11-17 2020-11-18 Inpatient EM Akhan, HCACL LD [id number] [facility] 22:09:00 14:15:00 Edesiri 70 [facility] 2020-10-29 2020-11-18 Outpatient EL Klever, HCACL OUTD [id number] [facility] 12:46:00 00:00:00 Edesiri 15 [facility] 2020-10-29 2020-10-29 Outpatient EL Akajaygbor, HCACL OUTD [id number] [facility] 12:46:00 12:46:00 Edesiri [id number] [facility] 2020-10-28 2020-10-28 Outpatient EL Akatawandaor, HCACL OUTD [id number] [facility] 10:38:00 10:38:00 Edesiri [id number] [facility] 2020-09-17 2020-09-17 Emergency EM Adamu, HCACL TAJ [id number] [facility] 12:06:00 15:39:00 Santana [id number] [facility] 2020-04-19 2020-04-19 Emergency [facility], [facility] 1.2.840.114 [id number] 11:49:00 14:31:00 Michaela Tucker 350.1.13.10 [place] 4.2.7.2.686 [place] [id number] [facility] 2020-04-19 2020-04-19 Emergency [facility] 1.2.840.114 [id number] Univers 11:49:00 14:31:00 Michaela Tucker 350.1.13.10 i ty of [place] 4.2.7.2.686 [facility] [id number] [place] [id number] Branch 2020-04-19 2020-04-19 Emergency X [facility] ERT [id number] Univers 11:31:00 11:31:00 [facility] Results Test Description Test Time Test Comments Results Result Comments Source POCT URINALYSIS W/O SPECIFIC GRAVITY 2021-05-03 16:12:00 Test Item Value Reference Range Interpretation Comme nts POCT PH U (test code = 3254) n/a 5-8 POCT U LEUK EST (test code = 3263) n/a Negative - Negative POCT U NIT (test code = 3262) n/a Negative - Negative POCT U PROT (test code = 3259) negative Negative - Negative POCT U GLU (test code = 3256) negative Negative - Negative POCT U KETONE (test code = 3258) n/a Negative - Negative POCT U BLD (test code = 3257) n/a Negative - Negative Lab Interpretation (test code = 56861-1) [facility] SPECIFIC [id number] 15:56:00 Test Item Value Reference Range Interpretation Comments POCT PH U (test code = 3254) n/a 5-8 POCT U LEUK EST (test code = n/a Negative - Negative 3263) POCT U NIT (test code = 3262) n/a Negative - Negative POCT U PROT (test code = 3259) Negative Negative - Negative POCT U GLU (test code = 3256) Negative Negative - Negative POCT U KETONE (test code = 3258) n/a Negative - Negative POCT U BLD (test code = 3257) n/a Negative - Negative Lab Interpretation (test code = Normal 04806-0) [facility] [id number] 15:55:00 Test Item Value Reference Range Interpretation Comments POCT PREG (test code = 1605) Positive On board controls acceptable with C Yes Line (test code = 3574) POCT PREG LOT # (test code = 3575) POCT PREG TEST DATE (test code = 3576) Lab Interpretation (test code = Normal 23248-2) [facility] [id number] 10:44:00 Test Item Value Reference Range Interpretation Comments COVID 19 INHOUSE Negative Negative A negative result is AG (test code = presumptive and should be [id number]) confirmedwith a n FDA authorized mole cular assay, if necessary fo rpatient management.A po sitive result does not rule out co-infections w ithother pathogens.This test detects both viable (li ve) and non-viable,SARS -CoV, and SARS-CoV-2. Cassie t performance dep ends on theamount of vi nabor (antigen) in e sample.This cassie t has not been FDA cleare d or approved; the t est hasbeen authorized by Ines WRIGHT under an Emergency Use Authorization(E UA) for use by laboratories certified under the CLIA thatmeet the requirements to perform moderate, high or waivedcomplexit y tests. COMPREHENSIVE METABOLIC [id number] 19:37:00 Test Item Value Reference Range Interpretation Comments SODIUM (test code = NA) 143 mEq/L 134-147 N POTASSIUM (test code = 3.6 mEq/L 3.4-5.0 N K) CHLORIDE (test code = 111 mEq/L 100-108 H CL) CARBON DIOXIDE (test 23 mEq/l 21-33 N code = CO2) ANION GAP (test code = 12 0-20 N GAP) GLUCOSE (test code = 83 mg/dL 70-110 N GLU) BLOOD UREA NITROGEN 8 mg/dL 7-18 N (test code = BUN) GLOMERULAR FILTRATION 101.1 110-120 L Units of measure = RATE (test code = GFR) ml/mi n/1.73 m2 CREATININE (test code = 0.7 mg/dL 0.6-1.3 N CREAT) TOTAL PROTEIN (test 6.9 g/dL 6.4-8.2 N code = PROT) ALBUMIN (test code = 3.40 g/dL 3.4-5.0 N ALB) CALCIUM (test code = 8.4 mg/dL 8.0-10.5 N CA) BILIRUBIN TOTAL (test 0.60 mg/dL 0.0-1.0 N code = BILT) SGOT/AST (test code = 25 IUnit/L 15-37 N AST) SGPT/ALT (test code = 13 IUnit/L 30-65 L ALT) ALKALINE PHOSPHATASE 155 IUnit/L 20-125 H TOTAL (test code = ALKP) UR HCG [id number] 19:34:00 Test Item Value Reference Range Interpretation Comments UR HCG QUAL (test code = HCGQLU) POSITIVE NEGATIVE UA RFLX MICR CULT IF [id number] 19:31:00 Test Item Value Reference Range Interpretation Comments UA COLOR (test code = COLU) YELLOW YEL/STRAW UA APPEARANCE (test code = SL CLOUDY CLEAR APPU) UA GLUCOSE DIPSTICK (test code NEGATIVE NEGATIVE = DGLUU) UA BILIRUBIN DIPSTICK (test NEGATIVE NEGATIVE code = BILU) UA KETONE DIPSTICK (test code = NEGATIVE NEGATIVE KETU) UA SPECIFIC GRAVITY (test code 1.014 1.005-1.030 N = SGU) UA BLOOD DIPSTICK (test code = 3+ NEGATIVE A HELLEN) UA PH DIPSTICK (test code = 5.0 5.0-7.0 N JOSEFINA) UA PROTEIN DIPSTICK (test code NEGATIVE NEGATIVE = PROU) UA UROBILINIOGEN DIPSTICK (test 0.2 mg/dL 0.2-1.0 code = URO) UA NITRITE DIPSTICK (test code NEGATIVE NEGATIVE = ANA CRISTINA) UA LEUKOCYTE ESTERASE DIPSTICK 2+ NEGATIVE A (test code = LEUU) UA WBC (test code = WBCU) 10-20 WBC/HPF 0-3 A UA RBC (test code = RBCU) 11-20 RBC/HPF 0-3 UA WBC NO REFLEX (test code = 10-20 WBC/HPF 0-3 A WBCUCL) UA BACTERIA (test code = BACU) TRACE /HPF NONE SEEN UA SQUAMOUS CELLS (test code = 0-5 /HPF NONE SEEN SQU) UA MUCUS (test code = MUCU) TRACE /LPF NONE SEEN Indication for culture: RiskForSepsis-no oth srcSpecimen Description: CLEAN CATCHCBC W/AUTO [id number] 19:24:00 Test Item Value Reference Range Interpretation Comments WHITE BLOOD CELL (test code = 6.2 x10 3/uL 4.5-11.0 WBC) RED BLOOD CELL (test code = 4.08 x10 6/uL 3.54-5.02 N RBC) HEMOGLOBIN (test code = HGB) 12.1 g/dL 11.0-15.0 N HEMATOCRIT (test code = HCT) 37.4 % 33.0-45.0 N MEAN CELL VOLUME (test code = 91.7 fL 81.0-99.0 N MCV) MEAN CELL HGB (test code = MCH) 29.7 pg 27.0-33.0 N MEAN CELL HGB CONCETRATION 32.4 g/dL 33.0-37.0 L (test code = MCHC) RED CELL DISTRIBUTION WIDTH CV 15.0 % 11.5-14.5 H (test code = RDW) RED CELL DISTRIBUTION WIDTH SD 50.8 fL 37.0-54.0 N (test code = RDW-SD) PLATELET COUNT (test code = 319 x10 3/uL 150-400 N PLT) MEAN PLATELET VOLUME (test code 9.3 fL 7.0-9.0 H = MPV) NEUTROPHIL % (test code = NT%) 50.5 % 56.0-77.0 L IMMATURE GRANULOCYTE % (test 0.5 % 0.0-2.0 N code = IG%) LYMPHOCYTE % (test code = LY%) 38.7 % 14.0-32.0 H MONOCYTE % (test code = MO%) 6.2 % 4.8-9.0 N EOSINOPHIL % (test code = EO%) 3.6 % 0.3-3.7 N BASOPHIL % (test code = BA%) 0.5 % 0.0-2.0 N NUCLEATED RBC % (test code = 0.0 % 0-0 N NRBC%) NEUTROPHIL # (test code = NT#) 3.12 x10 3/uL 2.0-7.6 N IMMATURE GRANULOCYTE # (test 0.03 x10 3/uL 0.00-0.03 N code = IG#) LYMPHOCYTE # (test code = LY#) 2.39 x10 3/uL 1.0-3.8 N MONOCYTE # (test code = MO#) 0.38 x10 3/uL 0.1-0.8 N EOSINOPHIL # (test code = EO#) 0.22 x10 3/uL 0.0-0.2 H BASOPHIL # (test code = BA#) 0.03 x10 3/uL 0.0-0.2 N NUCLEATED RBC # (test code = 0.00 x10 3/uL 0.0-0.1 N NRBC#) MANUAL DIFF REQUIRED (test code NO = MDIFF) - CT ABD PELVIS [id number] 00:00:00 [facility] 1995 Sex: F Name: ADRYAN GIBSON [facility] : 1995 Age/S: 25 / F [address] [place] [address] Unit #: [id number] Loc: [place] [address] Phys: Terese Rivera [facility] Acct: [id number] Dis Date: Status: REG ER PHONE #: [phone] Exam Date: 12/11/20201931 FAX #: [phone] Reason: abd pain, burning, s/p EXAMS: CPT CODE: [id number] CT ABD PELVIS W/CONT 19546 PROCEDURE INFORMATION: Exam: CT Abdomen And Pelvis With Contrast Exam date and time:12/11/2020 7:26 PM Age: 25 years old Clinical indication: Abdominal pain; Additional info: Abd pain, burning, S/P c- section TECHNIQUE: Imaging protocol: Computedtomography of the abdomen and pelvis with contrast. Radiation optimization: All CT scans at this facility use at least one of these dose optimization techniques: automated exposure control; mA and/or kV adjustment per patient size (includes targeted exams where dose is matched to clinical indication); or iterative reconstruction. Contrast material: [id number]; Contrast volume: 100 ml; Contrast route: INTRAVENOUS (IV) COMPARISON: CT ABD PELVIS W/CONT 12/01/2020 9:24 AM FINDINGS: ABDOMINAL ORGANS: A 4 mm low-density lesion is identified in the posterior segment of the right lobe of the liver (series 2, image 19) that is too small to definitively characterize however likely represents a small cyst. No acute CT abnormalities of the liver, spleen, pancreas, adrenal glands or kidneys are identified. There is no CT evidence of acute renal collecting system obstruction or calcified renal collecting system stone. The kidneys demonstrate symmetric homogeneous nephrographic enhancement without perinephric inflammation. BILIARY: The gallbladder is normally distended. No significant biliary ductal dilatation is detected. GASTROINTESTINAL: Bowel assessment is limited by the absence of bowel contrast. No gross abnormalities of the stomach or duodenum are identified. No small bowel dilatation is present to suggest obstruction. The appendix is identified and is not acutely inflamed. PERITONEUM: No evidence of free intraperitoneal air. No significant free intraperitoneal fluid. RETROPERITONEUM: The a bdominal aorta demonstrates no evidence of aneurysm or dissection. There is no evidence of retroperitoneal mass or adenopathy. PELVIS: The uterus enlarged, compatible with the patient's recently status. Postoperative changes of a are present. There is no evidence of a postoperative pelvic abscess or pelvic hematoma. No abnormalities of the ovaries/adnexa are noted. The bladder wall appears thickened. LOWER CHEST: The lung bases appear clear of acute disease. PAGE 1 Signed Report (CONTINUED) Name: ADRYAN GIBSON [facility] [place] : Age/S: 25 / F [address] [place] [address] Unit #: [id number] Loc: [place] [address] Phys: Terese Rivera [facility] Acct: [id number] Dis Date: Status: REG ER PHONE #: [phone] Exam Date: 12/11/2020 193 FAX #: [phone] Reason: abd pain, burning, s/p EXAMS: CPT CODE: [id number] CT ABD PELVIS W/CONT 32227<Continued> ADDITIONAL FINDINGS: No postoperative abdominal wall fluid collections are identified at the patient is low transverse incision. Thickening and enhancement of the periumbilical skin is present with injection of the subcutaneous fat, possibly indicating cellulitis. There is no evidence of soft tissue gas or soft tissue abscess. IMPRESSION: 1. CT findings compatible with recent . There is no evidence of postoperative pelvic hematoma or pelvic abscess. 2. The appearance of bladder wall thickening may be due to low bladder volume. Cystitis is cleared in cleared in the differential diagnosis. Correlation with urinalysis is recommended. 3. Thickening and enhancement of the periumbilical skin with injection of the subcutaneous fat, concerning for cystitis. There is no evidence of soft tissue gas or soft tissue abscess. SL:131 at 1951 Reported and signed by: Patric Bridges M.D. CC: Elsa Ernst MD; Terese Rivera Technologist:RT Gretchen(R)(CT) CTDI: DLP: Trnscb Date/Time: 12/11/2020 (1951) Graham Orig Print D/T: S: 12/11/2020 (1952) PAGE 2 Signed Report- CT ABD PELVIS [id number] 00:00:00 [facility] : 1995 Sex: F Name: ADRYAN GIBSON [facility] [place] : 1995 Age/S: 25 / F [address] [place] [address] Unit #: [id number] Loc: [place] [address] Phys: Elsa Ernst MD Acct: [id number] Dis Date: Status: ADM IN PHONE #: [phone] Exam Date: 12/01/2020926 FAX #: [phone] Reason: UNCONTROLLED ABDOMINAL PAIN Report Has Been Amended EXAMS: CPT CODE: [id number] CT ABD PELVIS W/CONT 15247 Addendum - 12/01/2020 SIGNED 12/01/2020 ADDENDUM: [id number] CT/CTABPLW Discussed with referringphysician around 1:42 p.m. on 12/01/2020 over the phone. at 1346 Reported and signed by: Eunice Davis M.D. ReportPROCEDURE INFORMATION: Exam: CT Abdomen And Pelvis With Contrast Exam date and time: 12/01/2020 9:24 AM Age: 25 years old Clinical indication: Abdominal pain; Additional info: Uncontrolled abdominal pain TECHNIQUE: Imaging protocol: Computed tomography of the abdomen and pelvis with contrast. Radiation optimization: All CT scans at this facility use at least one of these dose optimization techniques: automated exposure control; mA and/or kV adjustment per patient size (includes targeted exams where dose is matched to clinical indication); or iterative reconstruction. Contrast material: ISOVUE 300; Contrast volume: 100 ml; Contrast route: INTRAVENOUS (IV); COMPARISON: [facility] VEINUNI/LTD 11/30/2020 5:34 PM FINDINGS: Lungs: Included lung bases are clear. Low lung vol umes. Heart: Heart size is normal. No pericardial effusion. Liver: Subcentimeter low dense lesion within right hepatic lobe segment 7 that is too small to characterize on this exam. Series 3 image 13. No hepatic mass. Gallbladder and bile ducts: No cholelithiasis, gallbladder wall thickening or pericholecystic fluid. No biliary ductal dilitation of extra-hepatic or intra-hepatic. Pancreas: No mass or cyst. No pancreatic ductal prominence. No peripancreatic inflammmation. Spleen: Normal size and attenuation. PAGE 1 Signed Report (CONTINUED) Name: ADRYAN GIBSON [facility] Panchito Munoz : 1995 Age/S: 25 / F [address] [place] [address] Unit #: [id number] Loc: [place] [address] Phys: Elsa Ernst MD Acct: [id number] Dis Date: Status: ADM IN PHONE #: [phone] Exam Date: 12/01/2020926 FAX #: [phone] Reason: UNCONTROLLED ABDOMINAL PAIN Report Has Been Amended EXAMS: CPT CODE: [id number] CT ABD PELVIS W/CONT 29748 <Continued> Adrenal glands: No adrenal mass or cyst. Kidneys and ureters: No mass or cyst. No nephrolithiasis or hydronephrosis. Stomach and bowel: Moderate stool retention. Small bowel is within normal limits. Appendix: Normal appendix is not visualized. Adjacent to the ileocecal region, there is a fluid-filled distended structure, please refer to series 3, image 56. This may represent fluid-filled dilated bowel however, given its location presence of a dilated appendix cannot be excluded. Intraperitoneal space: No ascites. No free air. No significant free fluid pelvis. Vasculature: Abdominal aorta is normal in course and caliber. No aneurysmal dilitation. Lymph nodes: No pathologically enlarged lymph nodes. Urinary bladder: There is small amount of air within the urinary bladder at the nondependent portion, this may be related to recent instrumentation. Reproductive: Enlarged uterus to the level of umbilicus measuring approximately 18 cm in fundocervical length, which is normal for period. There is heterogenous enhancement of the uterine myometrium and along the endometrium. Slight prominence of the endometrial cavity and small foci of gas within the lower uterine endometrium. Prominence of both ovaries. Bones/joints: No aggressive osseous lesions. Included osseous structures are intact. Soft tissues: Inflammatory stranding and haziness with multiple focus of soft tissue gas withininfraumbilical region, suggestive of recent intervention. There is also gas within the left anterior abdominal wall muscle bellies. Diastasis of rectus abdominus muscle at the umbilicus with a segment of colon. Inflammatory stranding of the subcutaneous fat at the umbilicus. Dense bilateral breasts. IMPRESSION: 1. Normal appendix is not visualized. Question of a dilated appendix versus fluid-filled distended bowel adjacent to cecum. If there is clinical concern for acute appendicitis consider evaluation with noncontrast enhanced MRI. 2. Inflammatory changes at the umbilicus and infraumbilical region with small gas pockets within the subcutaneous fat in the infraumbilical region and left anterior abdominal wall, likely from recent intervention. No associated fluid collection. 3. Small amount of gas in lower uterine endometrium probably PAGE 2 Signed Report (CONTINUED) Name: ADRYAN GIBSON [facility] : 1995 Age/S: 25 / F [address] [place] [address] Unit #: [id number] Loc: [place] [address] Phys: Elsa Ernst MD Acct: [id number] Dis Date: Status: ADM IN PHONE #: [phone] Exam Date: 12/01/2020926 FAX #: [phone] Reason: UNCONTROLLED ABDOMINAL PAIN Report Has Been Amended EXAMS: CPT CODE: [id number] CT ABD PELVIS W/CONT 88303 <Continued>secondary to recent instrumentation. 4. Small amount of gas within the bladder that may be secondary to recent Gordillo versus gas-forming infection. Clinical correlation is recommended. at 1331 Reported and signed by: Eunice Davis M.D. CC: Pauline Ernst MD Technologist:RT Iván(R)(CT) CTDI: DLP: Trnscb Date/Time: 12/01/2020 (1331) [email or web address] Orig Print D/T: S: 12/01/2020 (1331) PAGE 3 Signed ReportSURGICAL PATH [id number] 14:53:00 Test Item Value Reference Range Interpretation Comments SURGICAL PATH SPECIMENS (test code = S) RUN DATE: 11/30/20 [place] - LAB PAGE 1 RUN TIME: 1453 Specimen Inquiry RUN USER: INTERFACE VALDO ENT: ADRYAN GIBSON LOC: [place] U #: [id number] AGE/SX: ROOM: [facility] [place]11[facility]20REG DR: Elsa Ernst MD : [birth year] BED: 1 DIS: STATUS: ADM IN TLOC: SPEC #: [id number] RECD: 11/29/20 STATUS: PRATIMA VENEGAS #: [id number] JULIET: 11/27/20- SUBM DR: Elsa Ernst MD ENTERED: 11/29/20 SP TYPE: SURG SPEC OTHR DR: Carleen Joiner,Cherry Perry,Nehemias Mars,Gene Christine Alvarez MDORDERED: LEVEL 5/3 CODES: [id number] - PLACENTA, NOS COPIES TO: Elsa Ernst MD [address] [place] [address] [place] [id number] [email or web address] Cherry Peña MD [address] [place] [address] [address], [place] [address] Nehemias Perry MD [address] [facility] [address] [place] [address] [email or web address] Jj Mars MD [address] [facility] [address] [place] [address] Christine Spencer MD [address] [address] PROCEDURES: GM LEVEL 5 (11/29/20) TISSUES: 3. PLACENTA, NOS CONTINUED ON NEXT PAGE RUN DATE: 11/30/20 [place] - LAB PAGE 2 RUN TIME: 1453 Specimen Inquiry RUN USER: INTERFACE SPEC #: [id number] PATIENT: ADRYAN GIBSON #[id number] (Continued) ------- FINAL DIAGNOSIS Placenta, triplet gestation, 31-week, submitted: Fused twin monochorionic-diamniotic placenta (411 g), velamentous insertion of cord twin A, separate placenta (278 g). GROSS AND MICROSCOPIC GROSS EXAMINATION: Received in formalin labeled placenta is a 411 g 19 x 17 x 1.8 cm fused twin placenta. The dividing membranes are thin. The surface of each side is bluegray with winding vessels on the surface. The maternal surface is intact with some adherent hemorrhage. The velamentously inserted three-vessel umbilical cord of twin A has 1 clamp and measures 20 cm in length 1.1 cm in diameter. The marginally inserted three-vessel umbilical cord of twin B with 2 clamps measures 17 cm in length 1.4 cm in diameter. The parenchyma of the fused placenta is beefy red without identified lesions. Attached only by membranes is a 278 g 13 x 13 x 1.7 cm placenta. The surface is bluegray with winding vessels on the surface. The maternal surface is intact with some adherent hemorrhage. The centrally inserted three-vessel umbilical cord measures 15 cm in length 1.3 cm in diameter. Tissue is submitted (A) twin a membranes (B) twin a umbilical cord (C)-(D) twin A parenchyma (E) dividing membranes twin A and twin B (F) twin B membranes (G) twin B umbilical cord (H)-(I) twin B parenchyma (J) twin B-twin C dividing membranes (K) twin C membrane (L) twin B umbilical cord (M)-(O) twin C parenchyma. MICROSCOPIC EXAMINATION: Sections of the placental membranes of each placental disc do not show a significant inflammatory infiltrate. The surfaces also do not show a significant inflammatory infiltrate. The maturation is appropriate for gestational age. The dividing membranes between twin A and twin B are diamniotic monochorionic. The umbilical cord twin A is velamentously inserted. No significant inflammatory infiltrate is seen within the umbilical cords. -- Signed SIGNATURE ON FILE Dashawn Villafana DO 11/30/20 1453 END OF REPORT - DUP VEIN [id number] 00:00:00 [facility] 1995 Sex: F Name: ADRYAN GIBSON [facility] : 1995 Age/S: 25 / F [address] [place] [address] Unit #: [id number] Loc: [place] [address] Phys: Elsa Ernst MD Acct: [id number] Dis Date: Status: ADM IN PHONE #: [phone] Exam Date: 11/30/20201749 FAX #: [phone] Reason: R/O DVT EXAMS: CPT CODE: [id number] DUP VEIN UNI/LTD 33887 PROCEDURE INFORMATION: Exam: US Duplex Right Lower Extremity Veins, Limited Exam date and time: 11/30/2020 5:34 PM Age: 25 years old Clinical indication: Pain; Edema, localized; Lower extremity, right; Leg, lower; Additional info: R/O dvt TECHNIQUE: Imaging protocol: Real-time Duplex ultrasound of the Right Lower Extremity with 2-D freeman scale, color Doppler flow and spectral waveform analysis with image documentation. Limited exam was focused on the right lower extremity veins. COMPARISON: No relevant prior studies available. FINDINGS: Right deep veins: The common femoral, femoral, popliteal, visualized calf and ankle veins are patent without thrombus. Right superficial veins: Unremarkable. Saphenofemoral junction is patent without thrombus. IMPRESSION: No evidence of deep vein thrombosis. at 1821 Reported and signed by: Deirdre Schuler D.O. CC: Elsa Ernst MD Technologist: Katherine Middleton RDMS(AB) Trnscb Date/Time: 11/30/2020 (1820) [email or web address] Orig Print D/T: S: 11/30/2020 (1821) Probe: PAGE 1 Signed Report COMPREHENSIVE METABOLIC [id number] 07:58:00 Test Item Value Reference Range Interpretation Comments SODIUM (test code = NA) 137 mEq/L 134-147 N POTASSIUM (test code = 4.1 mEq/L 3.4-5.0 N K) CHLORIDE (test code = 105 mEq/L 100-108 N CL) CARBON DIOXIDE (test 21 mEq/l 21-33 N code = CO2) ANION GAP (test code = 15 0-20 N GAP) GLUCOSE (test code = 87 mg/dL 70-110 N GLU) BLOOD UREA NITROGEN 7 mg/dL 7-18 N (test code = BUN) GLOMERULAR FILTRATION 86.7 110-120 L Units of measure = RATE (test code = GFR) ml/mi n/1.73 m2 CREATININE (test code = 0.8 mg/dL 0.6-1.3 N CREAT) TOTAL PROTEIN (test 5.4 g/dL 6.4-8.2 L code = PROT) ALBUMIN (test code = 2.30 g/dL 3.4-5.0 L ALB) CALCIUM (test code = 8.1 mg/dL 8.0-10.5 N CA) BILIRUBIN TOTAL (test 0.40 mg/dL 0.0-1.0 N code = BILT) SGOT/AST (test code = 27 IUnit/L 15-37 N AST) SGPT/ALT (test code = 8 IUnit/L 30-65 L ALT) ALKALINE PHOSPHATASE 268 IUnit/L 20-125 H TOTAL (test code = ALKP) CBC W/AUTO [id number] 07:10:00 Test Item Value Reference Range Interpretation Comments WHITE BLOOD CELL (test code = 11.2 x10 3/uL 4.5-11.0 H WBC) RED BLOOD CELL (test code = 2.91 x10 6/uL 3.54-5.02 L RBC) HEMOGLOBIN (test code = HGB) 8.6 g/dL 11.0-15.0 L HEMATOCRIT (test code = HCT) 26.4 % 33.0-45.0 L MEAN CELL VOLUME (test code = 90.7 fL 81.0-99.0 N MCV) MEAN CELL HGB (test code = MCH) 29.6 pg 27.0-33.0 N MEAN CELL HGB CONCETRATION 32.6 g/dL 33.0-37.0 L (test code = MCHC) RED CELL DISTRIBUTION WIDTH CV 14.8 % 11.5-14.5 H (test code = RDW) RED CELL DISTRIBUTION WIDTH SD 48.8 fL 37.0-54.0 N (test code = RDW-SD) PLATELET COUNT (test code = 170 x10 3/uL 150-400 N PLT) MEAN PLATELET VOLUME (test code 10.9 fL 7.0-9.0 H = MPV) NEUTROPHIL % (test code = NT%) 75.4 % 56.0-77.0 N IMMATURE GRANULOCYTE % (test 0.8 % 0.0-2.0 N code = IG%) LYMPHOCYTE % (test code = LY%) 14.1 % 14.0-32.0 N MONOCYTE % (test code = MO%) 9.4 % 4.8-9.0 H EOSINOPHIL % (test code = EO%) 0.1 % 0.3-3.7 L BASOPHIL % (test code = BA%) 0.2 % 0.0-2.0 N NUCLEATED RBC % (test code = 0.0 % 0-0 N NRBC%) NEUTROPHIL # (test code = NT#) 8.42 x10 3/uL 2.0-7.6 H IMMATURE GRANULOCYTE # (test 0.09 x10 3/uL 0.00-0.03 H code = IG#) LYMPHOCYTE # (test code = LY#) 1.57 x10 3/uL 1.0-3.8 N MONOCYTE # (test code = MO#) 1.05 x10 3/uL 0.1-0.8 H EOSINOPHIL # (test code = EO#) 0.01 x10 3/uL 0.0-0.2 N BASOPHIL # (test code = BA#) 0.02 x10 3/uL 0.0-0.2 N NUCLEATED RBC # (test code = 0.00 x10 3/uL 0.0-0.1 N NRBC#) MANUAL DIFF REQUIRED (test code NO = MDIFF) CORD ARTERIAL BLOOD [id number] 14:12:00 Test Item Value Reference Range Interpretation Comments CORD BLOOD PH (test code = PH/C) 7.24 7.18-7.38 N CORD BLOOD PCO2 (test code = 54 mmHg 32-66 N PCO2/C) CORD BLOOD PO2 (test code = 12 mmHg 6-30 N PO2/C) CORD BLOOD HCO3 (test code = 23 mmol/L 17-27 N HCO3/C) BASE EXCESS CORD (test code = -4.6 mmol/L -8.0-0.0 N MARSHALL/C) O2 SATURATION (test code = O2S/C) 10 % 72-77 L CORD VENOUS BLOOD [id number] 14:09:00 Test Item Value Reference Range Interpretation Comments CORD VENOUS PH (test code = PHCV) 7.34 7.25-7.45 N CORD VENOUS PCO2 (test code = 40 mmHg 27-49 N PCO2CV) CORD VENOUS PO2 (test code = 15 mmHg 17-41 L PO2CV) CORD VENOUS HCO3 (test code = 21.3 MMOL/L 12-28 N HCO3CV) CORD VENOUS BASE EXCESS (test -4.6 mmol/L -8.0-0.00 N code = BEXCV) CORD VENOUS 02 SAT (test code = 18 % O2SCV) CORD VENOUS BLOOD [id number] 14:04:00 Test Item Value Reference Range Interpretation Comments CORD VENOUS PH (test code = PHCV) 7.31 7.25-7.45 N CORD VENOUS PCO2 (test code = 42 mmHg 27-49 N PCO2CV) CORD VENOUS PO2 (test code = 20 mmHg 17-41 N PO2CV) CORD VENOUS HCO3 (test code = 21.3 MMOL/L 12-28 N HCO3CV) CORD VENOUS BASE EXCESS (test -4.9 mmol/L -8.0-0.00 N code = BEXCV) CORD VENOUS 02 SAT (test code = 28 % O2SCV) CORD ARTERIAL BLOOD [id number] 14:03:00 Test Item Value Reference Range Interpretation Comments CORD BLOOD PH (test code = PH/C) 7.26 7.18-7.38 N CORD BLOOD PCO2 (test code = 47 mmHg 32-66 N PCO2/C) CORD BLOOD PO2 (test code = 19 mmHg 6-30 N PO2/C) CORD BLOOD HCO3 (test code = 21 mmol/L 17-27 N HCO3/C) BASE EXCESS CORD (test code = -5.8 mmol/L -8.0-0.0 N MARSHALL/C) O2 SATURATION (test code = O2S/C) 22 % 72-77 L CORD ARTERIAL BLOOD [id number] 13:58:00 Test Item Value Reference Range Interpretation Comments CORD BLOOD PH (test code = PH/C) 7.22 7.18-7.38 N CORD BLOOD PCO2 (test code = 48 mmHg 32-66 N PCO2/C) CORD BLOOD PO2 (test code = 9 mmHg 6-30 N PO2/C) CORD BLOOD HCO3 (test code = 20 mmol/L 17-27 N HCO3/C) BASE EXCESS CORD (test code = -8.0 mmol/L -8.0-0.0 N MARSHALL/C) RAPID PLASMA [id number] 10:58:00 Test Item Value Reference Range Interpretation Comments RAPID PLASMA REAGIN (test code = NONREACTIVE NONREACTIVE RPR) AG HEPATITIS B [id number] 10:58:00 Test Item Value Reference Range Interpretation Comments AG HEPATITIS B SURFACE NON REACTIVE INDEX NonReactive (test code = HBSAG) AB HIV 1 10:58:00 Test Item Value Reference Range Interpretation Comments AB HIV 1 2 (test code = Nonreactive Nonreactive [id number]) CBC W/AUTO [id number] 08:42:00 Test Item Value Reference Range Interpretation Comments WHITE BLOOD CELL (test code = 8.4 x10 3/uL 4.5-11.0 N WBC) RED BLOOD CELL (test code = 3.41 x10 6/uL 3.54-5.02 L RBC) HEMOGLOBIN (test code = HGB) 10.2 g/dL 11.0-15.0 L HEMATOCRIT (test code = HCT) 31.3 % 33.0-45.0 L MEAN CELL VOLUME (test code = 91.8 fL 81.0-99.0 N MCV) MEAN CELL HGB (test code = MCH) 29.9 pg 27.0-33.0 N MEAN CELL HGB CONCETRATION 32.6 g/dL 33.0-37.0 L (test code = MCHC) RED CELL DISTRIBUTION WIDTH CV 15.1 % 11.5-14.5 H (test code = RDW) RED CELL DISTRIBUTION WIDTH SD 50.6 fL 37.0-54.0 N (test code = RDW-SD) PLATELET COUNT (test code = 170 x10 3/uL 150-400 N PLT) MEAN PLATELET VOLUME (test code 10.8 fL 7.0-9.0 H = MPV) NEUTROPHIL % (test code = NT%) 83.0 % 56.0-77.0 H IMMATURE GRANULOCYTE % (test 1.3 % 0.0-2.0 N code = IG%) LYMPHOCYTE % (test code = LY%) 13.5 % 14.0-32.0 L MONOCYTE % (test code = MO%) 1.9 % 4.8-9.0 L EOSINOPHIL % (test code = EO%) 0.1 % 0.3-3.7 L BASOPHIL % (test code = BA%) 0.2 % 0.0-2.0 N NUCLEATED RBC % (test code = 0.0 % 0-0 N NRBC%) NEUTROPHIL # (test code = NT#) 6.93 x10 3/uL 2.0-7.6 N IMMATURE GRANULOCYTE # (test 0.11 x10 3/uL 0.00-0.03 H code = IG#) LYMPHOCYTE # (test code = LY#) 1.13 x10 3/uL 1.0-3.8 N MONOCYTE # (test code = MO#) 0.16 x10 3/uL 0.1-0.8 N EOSINOPHIL # (test code = EO#) 0.01 x10 3/uL 0.0-0.2 N BASOPHIL # (test code = BA#) 0.02 x10 3/uL 0.0-0.2 N NUCLEATED RBC # (test code = 0.00 x10 3/uL 0.0-0.1 N NRBC#) MANUAL DIFF REQUIRED (test code NO = MDIFF) [id number] 02:09:00 Test Item Value Reference Range Interpretation Comments FIBRONECTIN (test code = FFN) NEGATIVE NEGATIVE AMNISURE (ROM) [id number] 02:08:00 Test Item Value Reference Range Interpretation Comments AMNISURE (ROM) TEST (test NEGATIVE NEGATIVE OP ENED:11/06/2020 code = AMNI) [id number] 21:39:00 Test Item Value Reference Range Interpretation Comments FIBRONECTIN (test code = FFN) NEGATIVE NEGATIVE URINALYSIS [id number] 21:17:00 Test Item Value Reference Range Interpretation Comments UA COLOR (test code = COLU) YELLOW YEL/STRAW UA APPEARANCE (test code = CLEAR CLEAR APPU) UA GLUCOSE DIPSTICK (test code 3+ NEGATIVE A = DGLUU) UA BILIRUBIN DIPSTICK (test NEGATIVE NEGATIVE code = BILU) UA KETONE DIPSTICK (test code 2+ NEGATIVE A = KETU) UA SPECIFIC GRAVITY (test code 1.022 1.005-1.030 N = SGU) UA BLOOD DIPSTICK (test code = NEGATIVE NEGATIVE HELLEN) UA PH DIPSTICK (test code = 5.0 5.0-7.0 N JOSEFINA) UA PROTEIN DIPSTICK (test code 1+ NEGATIVE A = PROU) UA UROBILINIOGEN DIPSTICK 0.2 mg/dL 0.2-1.0 (test code = URO) UA NITRITE DIPSTICK (test code NEGATIVE NEGATIVE = ANA CRISTINA) UA LEUKOCYTE ESTERASE DIPSTICK NEGATIVE NEGATIVE (test code = LEUU) UA RBC (test code = RBCU) 0-3 RBC/HPF 0-3 UA WBC NO REFLEX (test code = 0-3 WBC/HPF 0-3 WBCUCL) UA BACTERIA (test code = BACU) NONE SEEN /HPF NONE SEEN UA SQUAMOUS CELLS (test code = 0-5 /HPF NONE SEEN SQU) UA MUCUS (test code = MUCU) 2+ /LPF NONE SEEN A AMNISURE (ROM) [id number] 19:45:00 Test Item Value Reference Range Interpretation Comments AMNISURE (ROM) TEST (test code = NEGATIVE NEGATIVE AMNI) URINALYSIS [id number] 13:15:00 Test Item Value Reference Range Interpretation Comments UA COLOR (test code = COLU) YELLOW YEL/STRAW UA APPEARANCE (test code = CLEAR CLEAR APPU) UA GLUCOSE DIPSTICK (test code NEGATIVE NEGATIVE = DGLUU) UA BILIRUBIN DIPSTICK (test NEGATIVE NEGATIVE code = BILU) UA KETONE DIPSTICK (test code NEGATIVE NEGATIVE = KETU) UA SPECIFIC GRAVITY (test code 1.012 1.005-1.030 N = SGU) UA BLOOD DIPSTICK (test code = NEGATIVE NEGATIVE HELLEN) UA PH DIPSTICK (test code = 6.0 5.0-7.0 N JOSEFINA) UA PROTEIN DIPSTICK (test code NEGATIVE NEGATIVE = PROU) UA UROBILINIOGEN DIPSTICK 0.2 mg/dL 0.2-1.0 (test code = URO) UA NITRITE DIPSTICK (test code NEGATIVE NEGATIVE = ANA CRISTINA) UA LEUKOCYTE ESTERASE DIPSTICK NEGATIVE NEGATIVE (test code = LEUU) UA RBC (test code = RBCU) 0-3 RBC/HPF 0-3 UA WBC NO REFLEX (test code = 0-3 WBC/HPF 0-3 WBCUCL) UA BACTERIA (test code = BACU) NONE SEEN /HPF NONE SEEN UA SQUAMOUS CELLS (test code = 0-5 /HPF NONE SEEN SQU) UA MUCUS (test code = MUCU) 2+ /LPF NONE SEEN A Novel Coronavirus 12:46:00 Test Item Value Reference Range Interpretation Comments Novel Coronavirus Negative Negative Positive r esults are 2019 Inhouse (test indicativ e of the presence code = [id number]) ofSARS-CoV -2 RNA, clinical correlation wit h patient historyand othe r diagnostic info rmation is necessary to determinepatien t infection status. Positiv e results do not rule out bacterial infection or co -infection with other viru ses. Negative result s do not preclude SARS-C oV-2 infection andsh ould not be used as the mati e basis for patient managementdecis ions. Negative result s must be combined with otherclinical observations, p atient history, and epidemiological information . Detection of SARS-CoV-2 RNA may be affe cted bysample collec tion methods, storag e conditions, and /or stageof infection. Serina l RNA mutations, vacc inations, antiviraltherap eutics, antibiotics, chemotherapeuti c orimmunosuppres argelia drugs have not been e valuated for effectson d etection. Results are for the identification of SARS-CoV-2 RNA usingreal-time (RT) polymerase kate n reaction (PCR) technolog yfor the qualitative det ection of nucleic acids f rom zdwINJP-DaZ-2 v irus and diagnosis of SA RS-CoV-2 virusinfection. It is an Emergency Use Authorization ( EUA) testauthorized by the U.S. FDA. Coronavirus 2018 nCoV [id number] 14:58:00 Test Item Value Reference Range Interpretation Comments Coronavirus 2018 NEGATIVE Negative Negative re sults should be nCoV Bedside (test treated a s presumptive and, code = ifinconsistent with [id number]) clinical signs and symptoms or necessaryfor patient management, yogesh uld be tested with an alternativemole cular assay. Negative result s do not preclude [facility]KC-XpE-0yyjfu tion and should not be u sed as the sole basis forp atient management deci sions. Negative result s should beconsidered in the context of a patient's recent exposures,histo ry, presence of clinical sig ns and symptoms consis tentwith COVID-19. AG STREP GROUP A (THROAT)2020-09-17 13:24:00 Test Item Value Reference Range Interpretation Comments AG STREP GROUP A Negative Negative Negative fo r Strep A (THROAT) (test code = nuclei c acid STREPA) - XR CHEST 1 [id number] 00:00:00 [facility] : 1995 Sex: F FAX: Elsa Milton [phone] [place]: St: REG FAX: Luiz Schwarz [phone] Name: ADRYAN GIBSON [facility] : 1995 Age/S: 25/F [address] [place] [address] Unit #: [id number] Loc: [place] [address] Phys: Luiz Schwarz Acct: [id number] Dis Date: Status: REG ER PHONE #: [phone] Exam Date: 09/17/2020 1323 FAX #: [phone] Reason: cough, congested, tachycardia, EXAMS: CPT CODE: [id number] XR CHEST 1 V 61746 PROCEDURE INFORMATION: Exam: XR Chest Exam date and time: 09/17/2020 1:06 PM Age: 25 years old Clinical indication: Cough; Additional info: Cough, congested, tachycardia, TECHNIQUE: Imaging protocol: XR of the chest. Views: 1 view. COMPARISON: No relevant prior studies available. FINDINGS: Lungs: Mild ill-defined patchy opacities are identified at the lung bases. No consolidation.Normal pulmonary vascularity. Pleural spaces: No pneumothorax or pleural effusion. Heart/Mediastinum: The cardiomediastinal silhouette is within normal limits. Bones/joints: Unremarkable. IMPRESSION: Mild pulmonary opacities the lung bases findings may be related to atelectasis or infection at 1330 Reported and signed by: Di Ramos M.D. CC: Elsa Perera; Luiz FELTON Technologist: RT Leilani(R) Trnscrd Date/Time/By: 09/17/2020 (6910) : By: [id number] Orig Print D/T: S: 09/17/2020 (1808) PAGE 1 Signed Report
[2021-05-28 21:15] LABS: Urine Blood Negative (Negative); Urine Glucose Negative (Negative); Urine Protein Negative (Negative); Urine Specific Gravity >=1.030 (1.005-1.030)
[2021-05-28 21:31] LABS: Absolute Lymphocytes (CBC) 1.7 K/uL (0.7-4.9); Hematocrit 34.9 % (36.0-45.0); Lymphocytes % 24.8 % (15.3-44.8); MPV 7.1 fL (7.6-11.3); RBC Red Blood Cell Count 3.88 M/uL (3.86-4.86)
[2021-05-28 21:34] LABS: Urine Bacteria 20-50 /HPF (<20); Urine RBC <5 /HPF (NONE SEEN)
[2021-05-28 21:44] LABS: BUN Blood Urea Nitrogen 12 mg/dL (7-18); Bicarbonate 24 mmol/L (21-32); Glucose Level 89 mg/dL (74-106); Potassium 3.9 mmol/L (3.5-5.1); Sodium Level 139 mmol/L (136-145)
[2021-05-28 22:00] LABS: HCG, Quantitative 29507 mIU/mL (1-3)
[2021-05-28] MEDS ORDERED: ACETAMINOPHEN 325 MG TABLET ONE (22:18)
[2021-05-28] MEDS ORDERED: CEFTRIAXONE 1000 MG/VIAL ONE (22:19)
--- NOTE | 2021-05-29 00:41 | ER ---
Nurse's Notes [facility] Name: Mary Ann Wood Age: 25 yrs Sex: Female : 1995 Arrival Date: 05/28/2021 Time: 20:51 Bed 8 Private MD: Diagnosis: UTI/ Urinary tract infection, site not specified;Threatened Presentation: 05/28 20:52 Chief complaint: Patient states: approx 1 hr [employer] pt started having abdominal pain. pt as6 is 16 weeks . pt is considered high risk . pt reports mild spotting this morning. Coronavirus screen: At this time, the client does not indicate any symptoms associated with coronavirus-19. Ebola Screen: No symptoms or risks identified at this time. Initial Sepsis Screen: Does the patient meet any 2 criteria? No. Patient's initial sepsis screen is negative. Does the patient have a suspected source of infection? No. Patient's initial sepsis screen is negative. Risk Assessment: Do you want to hurt yourself or someone else? Patient reports no desire to harm self or others. Onset of symptoms was May 28, 2021 at 19:30. 20:52 Method Of Arrival: EMS: [facility] as6 20:52 Acuity: AILYN 3 as6 FAMILY LIFE EDUCATOR: 20:57 Verified as6 Historical: - Allergies: 20:56 No Known Allergies; as6 - Home Meds: 20:56 None [Active]; as6 - PMHx: 20:56 None; as6 - PSHx: 20:56 section; as6 - Immunization history:: Client reports having NOT received the Covid vaccine. - Social history:: Smoking status: Patient denies any tobacco usage or history of. Screenin:56 Abuse screen: Denies threats or abuse. Denies injuries from another. Nutritional as6 screening: No deficits noted. Tuberculosis screening: No symptoms or risk factors identified. Fall Risk None identified. Assessment: 20:57 General: Appears in no apparent distress. uncomfortable, Behavior is calm, cooperative. as6 Pain: Complains of pain in left lower quadrant Pain radiates to suprapubic area Quality of pain is described as crampy, radiating, sharp. Neuro: Level of Consciousness is awake, alert, obeys commands, Oriented to person, place, time, situation. Cardiovascular: Capillary refill < 3 seconds Patient's skin is warm and dry. Respiratory: Airway is patent Trachea midline Respiratory effort is even, unlabored, Respiratory pattern is regular, symmetrical. : Reports vaginal bleeding that is spotty. Vital Signs: 20:52 BP 125 / 80; Pulse 86; Resp 19 S; Temp 98.8(O); Pulse Ox 100% on R/A; Weight 58.97 kg as6 (R); Height 5 ft. (152.40 cm) (R); Pain 8/10; 22:41 BP 159 / 110; Pulse 87; Resp 18 S; Pulse Ox 100% on R/A; as6 05/29 00:00 BP 97 / 66; Pulse 84; Resp 18 S; Pulse Ox 100% on R/A; as6 01:00 BP 88 / 60; Pulse 83; Resp 18 S; Pulse Ox 99% on R/A; as6 05/28 20:52 Body Mass Index 25.39 (58.97 kg, 152.40 cm) as6 Vitals: 05/28 21:25 Heart Tones 129. as6 ED Course: 20:51 Patient arrived in ED. as6 20:55 Rajan Ramirez NP is PHCP. pm1 20:55 Pa Diop DO is Attending Physician. pm1 20:56 Triage completed. as6 20:56 Arm band placed on. as6 20:59 Bed in low position. Call light in reach. Side rails up X2. Security at bedside. Pulse as6 ox on. NIBP on. 21:08 Froilan Ramirez, RN is Primary Nurse. as6 21:15 Urine Microscopic Only Sent. as6 21:20 Urine --Ancillary (enter results) Sent. lg3 21:20 Urine Microscopic Only Sent. lg3 21:20 Abo/rh Typing Sent. lg3 21:21 Basic Metabolic Panel Sent. lg3 21:21 CBC with Diff Sent. lg3 21:21 Quantitative Hcg Sent. lg3 21:21 Inserted saline lock: 20 gauge in right antecubital area, using aseptic technique. lg3 Blood collected. 23:13 OB Limited In Process Unspecified. EDMS 05/29 00:59 No provider procedures requiring assistance completed. IV discontinued, intact, lg3 bleeding controlled, No redness/swelling at site. Pressure dressing applied. Administered Medications: 05/28 22:15 Drug: Rocephin (cefTRIAXone) 1 grams Route: IV; Rate: calculated rate; Site: right lg3 antecubital; 22:15 Follow up: Response: No adverse reaction lg3 05/29 01:00 Follow up: Response: No adverse reaction; IV Status: Completed infusion; IV Intake: [id number] 05/28 22:15 Drug: Tylenol 650 mg Route: PO; lg3 22:15 Follow up: Response: No adverse reaction lg3 Intake: 05/29 01:00 IV: 10ml; Total: 10ml. lg3 Outcome: 00:40 Discharge ordered by . pm1 00:59 Discharged to Law Enforcement lg3 00:59 Condition: stable 00:59 Discharge instructions given to patient, Instructed on discharge instructions, follow up and referral plans. medication usage, Prescriptions given X 1. 01:01 Patient left the ED. as6 Signatures: Dispatcher [employer] EDMS Rajan Ramirez NP MARINE WELDER pm1 Polly Lyles RN RN lg3 Froilan Ramirez RN RN as6
--- NOTE | 2021-05-29 00:42 | EDPHYS ---
Physician Documentation [facility] Name: Mary Ann Wood Age: 25 yrs Sex: Female : 1995 Arrival Date: 05/28/2021 Time: 20:51 Bed 8 Private MD: ED Physician Pa Diop HPI: 05/28 21:07 This 25 yrs old Female presents to ER via EMS with complaints of Abdominal pain. pm1 21:07 The patient presents with vaginal bleeding that is spotting, This morning and contacted pm1 her OB who informed her over the phone that it was normal and nothing she should worry about. Onset: The symptoms/episode began/occurred 1 hour(s) ago. Modifying factors: The symptoms are alleviated by nothing, the symptoms are aggravated by nothing. Associated signs and symptoms: Pertinent negatives: dysuria, fever, Flank pain. Severity of symptoms: in the emergency department the symptoms Vaginal bleeding has resolved. Patient reports abdominal pain 1 hour prior to arrival. Patient currently under police custody. Was arrested today. The patient has not experienced similar symptoms in the past. Patient has had care. Has had ultrasound showing IUP with her OB. Patient reports 16 weeks and 2 days . [employer] LAB TECHNICIAN: 20:57 Verified as6 Historical: - Allergies: 20:56 No Known Allergies; as6 - Home Meds: 20:56 None [Active]; as6 - PMHx: 20:56 None; as6 - PSHx: 20:56 section; as6 - Immunization history:: Client reports having NOT received the Covid vaccine. - Social history:: Smoking status: Patient denies any tobacco usage or history of. ROS: 21:07 Positive for vaginal bleeding, Negative for urinary frequency, burning with pm1 urination. 21:07 Constitutional: Negative for fever, chills, and weight loss, Cardiovascular: Negative for chest pain, palpitations, and edema, Respiratory: Negative for shortness of breath, cough, wheezing, and pleuritic chest pain. 21:07 Back: Negative for injury and pain, MS/Extremity: Negative for injury and deformity, Skin: Negative for injury, rash, and discoloration, Neuro: Negative for headache, weakness, numbness, tingling, and seizure. 21:07 Abdomen/GI: Positive for abdominal pain, of the suprapubic area, Negative for nausea, vomiting, and diarrhea. 21:07 All other systems are negative. Exam: 21:07 Constitutional: This is a well developed, well nourished patient who is awake, alert, pm1 and in no acute distress. Head/Face: Normocephalic, atraumatic. 21:07 Abdomen/GI: Soft, non-tender, with normal bowel sounds. No distension or tympany. No guarding or rebound. No evidence of tenderness throughout. Back: No spinal tenderness. No costovertebral tenderness. Full range of motion. Skin: Warm, dry with normal turgor. Normal color with no rashes, no lesions, and no evidence of cellulitis. MS/ Extremity: Pulses equal, no cyanosis. Neurovascular intact. Full, normal range of motion. 21:07 Cardiovascular: Exam negative for acute changes, Rate: normal, Rhythm: regular, Pulses: no pulse deficits are appreciated. 21:07 Respiratory: Exam negative for acute changes, respiratory distress, shortness of breath. 21:07 Neuro: Exam negative for acute changes, Orientation: is normal, Mentation: is normal, Motor: is normal, moves all fours. Vital Signs: 20:52 BP 125 / 80; Pulse 86; Resp 19 S; Temp 98.8(O); Pulse Ox 100% on R/A; Weight 58.97 kg as6 (R); Height 5 ft. (152.40 cm) (R); Pain 8/10; 22:41 BP 159 / 110; Pulse 87; Resp 18 S; Pulse Ox 100% on R/A; as6 05/29 00:00 BP 97 / 66; Pulse 84; Resp 18 S; Pulse Ox 100% on R/A; as6 01:00 BP 88 / 60; Pulse 83; Resp 18 S; Pulse Ox 99% on R/A; as6 05/28 20:52 Body Mass Index 25.39 (58.97 kg, 152.40 cm) as6 MDM: 05/28 20:55 Patient medically screened. pm1 05/29 00:40 Data reviewed: vital signs. Data interpreted: Pulse oximetry: on room air is 100 %. pm1 Interpretation: normal. Counseling: I had a detailed discussion with the patient and/or guardian regarding: the historical points, exam findings, and any diagnostic results supporting the discharge/admit diagnosis, lab results, radiology results, the need for outpatient follow up, to return to the emergency department if symptoms worsen or persist or if there are any questions or concerns that arise at home. 05/28 21:07 Order name: Abo/rh Typing; Complete Time: 22:08 pm1 05/28 21:07 Order name: Basic Metabolic Panel; Complete Time: 22:08 pm1 05/28 21:07 Order name: CBC with Diff; Complete Time: 22:08 pm1 05/28 21:07 Order name: Quantitative Hcg; Complete Time: 22:08 pm1 05/28 21:07 Order name: Urine Microscopic Only; Complete Time: 22:08 pm1 05/28 21:15 Order name: Urine --Ancillary (enter results); Complete Time: 22:08 cs9 05/28 21:07 Order name: IV Saline Lock; Complete Time: 21:20 pm1 05/28 21:07 Order name: Labs collected and sent; Complete Time: 21:20 pm1 05/28 21:15 Order name: Urine Dipstick-Ancillary; Complete Time: 22:08 EDMS 05/28 21:37 Order name: Urine Culture EDMS 05/28 23:12 Order name: OB Limited EDMS 05/28 21:07 Order name: NPO; Complete Time: 21:08 pm1 05/28 21:07 Order name: Urine Dipstick-Ancillary (obtain specimen); Complete Time: 21:15 pm1 05/28 21:07 Order name: Urine Test (obtain specimen); Complete Time: 21:15 pm1 05/28 21:07 Order name: Heart Tones; Complete Time: 21:25 pm1 Administered Medications: 05/28 22:15 Drug: Rocephin (cefTRIAXone) 1 grams Route: IV; Rate: calculated rate; Site: right lg3 antecubital; 22:15 Follow up: Response: No adverse reaction lg3 05/29 01:00 Follow up: Response: No adverse reaction; IV Status: Completed infusion; IV Intake: [id number] 05/28 22:15 Drug: Tylenol 650 mg Route: PO; lg3 22:15 Follow up: Response: No adverse reaction lg3 Disposition: 05/29 06:12 Co-signature as Attending Physician, Pa ALMANZA was immediately available on-site ms3 in the Emergency Department for consultation in the care of the patient.. Disposition Summary: 05/29/21 00:40 Discharge Ordered Location: Home pm1 Problem: new pm1 Symptoms: have improved pm1 Condition: Stable pm1 Diagnosis - UTI/ Urinary tract infection, site not specified pm1 - Threatened pm1 Followup: pm1 - With: Emergency Department - When: As needed - Reason: Worsening of condition Followup: pm1 - With: Private Physician - When: 2 - 3 days - Reason: Recheck today's complaints, Continuance of care, Re-evaluation by your physician Discharge Instructions: - Discharge Summary Sheet pm1 - Threatened Miscarriage pm1 - Urinary Tract Infection, Adult pm1 - Activity Restriction During pm1 Forms: - Medication Reconciliation Form pm1 - Thank You Letter pm1 - Antibiotic Education pm1 - Prescription Opioid Use pm1 Prescriptions: - Macrobid 100 mg Oral Capsule - take 1 capsule by ORAL route every 12 hours for 10 days; 20 capsule; Refills: pm1 0, Product Selection Permitted Signatures: Dispatcher [employer] EDRajan Ruth, MELISSA CAR PICK UP DRIVER pm1 Polly Lyles, RN RN lg3 Pa Diop DO DO ms3 Froilan Ramirez RN RN as6 Corrections: (The following items were deleted from the chart) 05/28 23:12 22:20 Transvaginal Ob+US.RAD.DULCEZ ordered. EDIN EDMS
[2021-05-29 02:42] VITALS: TEMP 98.8
[2021-05-29 02:47] VITALS: BP 88/60; O2SAT 99
--- NOTE | 2021-05-30 13:46 | RAD REPORT ---
EXAM DESCRIPTION: US - OB Limited - 05/28/2021 11:13 pm CLINICAL HISTORY: Vaginal bleeding. COMPARISON: None. TECHNIQUE: Transabdominal sonographic evaluation of the gravid uterus performed. FINDINGS: number: Single position: Breech heart rate: 150. bpm. Placenta: Anterior without previa. Placenta is low-lying. Cervix: Not well visualized. Amniotic fluid index: Subjectively normal. AC: 12.0 cm, 17 weeks, 5 days. FL: 2.42 cm, 17 weeks, 2 days. FL/AC: 20.15 (20-24%) IMPRESSION: 1. Uncomplicated live breech presenting intrauterine 17 week, 4 day gestation without pr evia. KAYLYN: 11/01/2021. Electronically signed by: Erica Puentes DO 05/28/2021 11:25 PM CDT Due to temporary technical issues with the PACS/Fluency reporting system, reports are being signed by the in house radiologist without review as a courtesy to ensure prompt reporting. The interpreting r adiologist is fully responsible for the content of the report.
== END 2021-05-29 01:01 | disposition home or self-care (01) ==
LOC: ER 20:48
DX: O20.0 Threatened abortion (principal); O23.42 Unspecified infection of urinary tract in pregnancy, second trimester; N39.0 Urinary tract infection, site not specified; Z3A.16 16 weeks gestation of pregnancy
CPT/HCPCS: 36415; 76815; 80048; 81003; 81015; 81025; 84702; 85025; 86900; 86901; 87086; 87088; 96365; 96366; 99285